=== PATIENT | female | born 1965 | race Caucasian/White ===

== ENCOUNTER 2019-10-30 12:28 | Outpatient (CLI) | payer MEDICARE, MEDICAID, SELFPAY ==
--- NOTE | ~2019-10-30 | US_ITS ---
EXAMINATION: US soft tissue head and neck DATE: 10/30/2019 13:20 INDICATION: Localized enlarged lymph nodes at the lateral left neck TECHNIQUE: Multiple grayscale and Doppler ultrasound images of the of concern at the left neck were o btained. COMPARISON: None FINDINGS: There are several normal-appearing and normal sized lymph nodes measuring up to 4 mm maximal short ax is diameter along the left jugular chain. No pathologically enlarged cervical lymphadenopathy. The vi sualized portions of the left thyroid gland are unremarkable. The visualized portions of the left com mon carotid artery and internal jugular vein appear normal. No abnormal masses or fluid collections i dentified. IMPRESSION: 1. Normal study. No pathologically enlarged lymph nodes or other abnormal masses identified at the re gion of concern at the left neck. Reviewed, dictated and finalized at location A. ET ASSEMBLER IMPRESSION: 1. Normal study. No pathologically enlarged lymph nodes or other abnormal juan luis s identified at the region of concern at the left neck.
== END 2019-10-30 12:29 | disposition home or self-care (01) ==
PROVIDERS: PCP Internal Medicine; Visit Provider Internal Medicine
DX: R59.0 Localized enlarged lymph nodes (principal)
CPT/HCPCS: 76536

== ENCOUNTER 2019-11-10 10:00 | Outpatient (CLI) | payer MEDICARE, MEDICAID, SELFPAY ==
--- NOTE | ~2019-11-10 | DEXA_ITS ---
Bone Density Report Name: Sarai Martinez Age: 54 Sex: Female Ethnicity: White Date of : 1965 Indication: postmenopausal; height loss; asthma or emphysema; hysterectomy; Referring Provider: ROSA ALTAMIRANO Study: Bone densitometry was performed. Exam Date: November 10, 2019 Accession number: [id number] Bone Density: Region BMD T-score Z-score Classification AP Spine (L1-L4) 0.946 -0.9 0.2 Normal Femoral Neck (Left) 0.751 -0.9 0.2 Normal Total Hip (Left) 0.843 -0.8 -0.1 Normal Total Hip Bilateral Avg 0.815 -1.1 -0.4 Osteopenia Femoral Neck (Right) 0.702 -1.3 -0.2 Osteopenia Total Hip (Right) 0.785 -1.3 -0.6 Osteopenia World Health Organization criteria for BMD impression classify patients as: Normal (T-score at or above -1.0), Osteopenia (T-score between -1.0 and -2.5), or Osteoporosis (T-score at or below -2.5). 10-year Fracture Risk(1): Major Osteoporotic Fracture 6.4% Hip Fracture 0.7% Reported Risk Factors: [place] (), Neck BMD=0.702, BMI=27.9, smoking (1) FRAX(R) Version 3.08. Fracture probability calculated for an untreated patient. Fracture probability may be lower if the patient has received treatment. Previous Exams: Region Exam Age BMD T-score BMD Change BMD Change Date g/cm2 vs Baseline vs Previous AP Spine(L1-L4) 11/10/2019 54 0.946 -0.9 -0.093(-8.9%)* -0.037(-3.8%)* 09/21/2017 52 0.984 -0.6 -0.055(-5.3%)* -0.055(-5.3%)* 07/30/2014 49 1.039 -0.1 Total Hip(Left) 11/10/2019 54 0.843 -0.8 -0.091(-9.8%)* 0.023(2.7%) 09/21/2017 52 0.821 -1.0 -0.114(-12.2%) -0.114(-12.2%) 07/30/2014 49 0.935 -0.1 Total Hip(Right) 11/10/2019 54 0.785 -1.3 -0.129(-14.1%) -0.036(-4.4%)* 09/21/2017 52 0.821 -1.0 -0.093(-10.2%) -0.093(-10.2%) 07/30/2014 49 0.914 -0.2 *Denotes significance at 95% confidence level, LSC for AP Spine = 0.022 g/cm2, LSC for Total Hip = 0.027 g/cm2 Clinical Information Provided by Patient: Smokes Has used the following medications: Vitamin D Has the following medical conditions: Asthma or Emphysema, Hysterectomy Patient maximum height was 65 Menopause Age: 37 No regular weight bearing exercise Drinks caffeinated beverages Onset of menses at age 10 Number of children 2 Impression: The patient has low bone mass, based on the Right Total Hip T-score. The patient has an estimated ten-year risk of hip fracture of 0.7% and an estimated ten-year risk of major
== END 2019-11-10 10:01 | disposition home or self-care (01) ==
LOC: ANHIMG 10:04
PROVIDERS: PCP Internal Medicine; Visit Provider Internal Medicine
DX: M85.89 Other specified disorders of bone density and structure, multiple sites (principal)
CPT/HCPCS: 77080

== ENCOUNTER 2020-03-20 10:29 | Outpatient (CLI) | payer MEDICARE, MEDICAID, SELFPAY ==
--- NOTE | ~2020-03-20 | MM_ITS ---
EXAMINATION: MM screening [facility] BI w alma HISTORY: Screening mammogram TECHNIQUE: Craniocaudal and mediolateral oblique 3-D tomosynthesis images were obtained and synthetic 2-D images were generated. CAD analysis was submitted and interpreted. COMPARISON: 01/17/2019, 09/21/2017, 08/19/2016 BREAST PARENCHYMAL COMPOSITION: There are scattered areas of fibroglandular density. FINDINGS: Stable asymmetry is again noted in the posterior third of the right breast on the craniocau concha view. There is no evidence of suspicious mass, calcification, or architectural distortion to sugg est malignancy in either breast. There has been no suspicious interval change. IMPRESSION: 1. No mammographic evidence of malignancy. 2. Recommend routine screening mammography in one year. BI-RADS Category 2: Benign finding(s). Reviewed, dictated and finalized at location A.
== END 2020-03-20 10:30 | disposition home or self-care (01) ==
LOC: ANHIMG 10:31
PROVIDERS: PCP Internal Medicine; Visit Provider Internal Medicine
DX: Z12.31 Encounter for screening mammogram for malignant neoplasm of breast (principal)
CPT/HCPCS: 77063; 77067

== ENCOUNTER 2020-05-09 13:59 | Outpatient (CLI) | payer MEDICARE, MEDICAID, SELFPAY ==
--- NOTE | ~2020-05-09 | CT_ITS ---
EXAMINATION:CT lung screening DATE: 05/09/2020 14:19 INDICATION: Personal history of tobacco dependence. Current smoker with 45 pack year history. TECHNIQUE: Computed tomography (CT) of the chest was performed without intravenous contrast. Automate d exposure control and iterative reconstruction technique were employed. The dose-length product (DLP ) was 94.75 mGy-cm. COMPARISON: Chest CT 03/05/2019 FINDINGS: There is moderate emphysema. There is widespread septal thickening in the lungs associated with mild groundglass opacities, consistent with chronic interstitial lung disease in a pattern of us ual interstitial pneumonia (UIP) versus nonspecific interstitial pneumonia (NSIP). No bronchiectasis. There is a 6 mm nodule in right middle lobe without change. A calcified right lung nodule and calcif ied right hilar lymph nodes are consistent with old granulomatous disease. There is a 5 mm nodule lef t lower lobe without change. No pleural effusion. The heart size is normal. No pericardial effusion. There are coronary artery calcifications. There is chronic mild mediastinal lymphadenopathy, likely r eactive. Calcifications in the spleen are consistent with old granulomatous disease. There is a 3 mm stone in right kidney. There is moderate thoracic spondylosis. There is mild chronic anterior wedging of T7 vertebral body. IMPRESSION: 1. Lung-RADS category 2: Benign appearance or behavior. Continue annual screening with noncontrast lo w-dose chest CT in 12 months. Reviewed, dictated and finalized at location A. IMPRESSION: 1. Lung-RADS category 2: Benign appearance or behavior. Continue annual screeni ng with noncontrast low-dose chest CT in 12 months.
== END 2020-05-09 14:00 | disposition home or self-care (01) ==
LOC: ANHIMG 14:05
PROVIDERS: PCP Internal Medicine; Visit Provider Nurse Practitioner Family
DX: Z12.2 Encounter for screening for malignant neoplasm of respiratory organs (principal); Z87.891 Personal history of nicotine dependence
CPT/HCPCS: G0297

== ENCOUNTER 2020-07-11 13:11 | Outpatient (CLI) | payer MEDICARE, MEDICAID, SELFPAY ==
--- NOTE | ~2020-07-11 | XR_ITS ---
EXAMINATION: [id number] INDICATION: Left rib pain, tobacco use TECHNIQUE: A frontal view of the chest and 3 views of the left ribs were obtained. COMPARISON: CT, 05/09/2020 FINDINGS: There are widespread reticular opacities with a peripheral predominance, consistent with ch ronic interstitial lung disease, better evaluated on recent chest CT. The lungs are free of acute opa cities. There is no pleural effusion or pneumothorax. The cardiomediastinal silhouette is normal. No displaced rib fracture is identified. Punctate calcifications of the left upper quadrant are consiste nt with healed granulomatous disease of the spleen. Calcified pulmonary nodules and calcified right h ilar lymph nodes are consistent with old granulomatous disease. A biopsy marker is noted in the left breast. IMPRESSION: 1. No evidence of displaced rib fracture. 2. Chronic interstitial lung disease. Reviewed, dictated and finalized at location A. LE BUSINESS INTELLIGENCE DEVELOPER
== END 2020-07-11 13:12 | disposition home or self-care (01) ==
PROVIDERS: PCP Internal Medicine; Visit Provider Internal Medicine
DX: R07.89 Other chest pain (principal); Z87.891 Personal history of nicotine dependence; J44.9 Chronic obstructive pulmonary disease, unspecified; E11.9 Type 2 diabetes mellitus without complications; J84.9 Interstitial pulmonary disease, unspecified
CPT/HCPCS: 71101

== ENCOUNTER 2020-08-06 09:06 | Outpatient (CLI) | payer MEDICARE, MEDICAID, SELFPAY ==
--- NOTE | ~2020-08-06 | MR_ITS ---
EXAMINATION: MR thoracic spine wo con EXAM DATE: 08/06/2020 10:27 INDICATION: Radiculopathy of thoracic region. TECHNIQUE: Multi-sequential, multiplanar MR images of the thoracic spine were obtained without contra st. Sagittal T1, T2, T2 fat saturation, axial T2 weighted images reviewed. There is no prior study for comparison. FINDINGS: Mild mid thoracic disc disease and kyphosis. Mild mid and upper thoracic disc bulges and sm all protrusions. The central canal and neural foramen are widely patent. There are no suspicious ling ow signal abnormalities. The spinal cord signal intensity and intrinsic morphology is normal. No appr eciable scoliosis. Mild thoracic facet arthropathy. IMPRESSION: Mild thoracic spondylosis without stenosis Reviewed, dictated and finalized at location A. MOTIVE OBSERVER
== END 2020-08-06 09:07 | disposition home or self-care (01) ==
PROVIDERS: PCP Internal Medicine; Visit Provider Nurse Practitioner Adult Health
DX: M47.24 Other spondylosis with radiculopathy, thoracic region (principal)
CPT/HCPCS: 72146

== ENCOUNTER 2020-10-03 12:29 | Outpatient (CLI) | payer MEDICARE, MEDICAID, SELFPAY ==
--- NOTE | ~2020-10-03 | MR_ITS ---
EXAMINATION: MR lumbar spine wo con DATE: 10/03/2020 13:36 INDICATION: Lumbar radiculopathy TECHNIQUE: Magnetic resonance imaging (MRI) of the lumbar spine was performed without intravenous con trast. Sequences included sagittal T2-weighted FSE, sagittal T2-weighted FS FSE, sagittal T1-weighted FSE, and axial T2-weighted FSE. COMPARISON: 09/21/2017 FINDINGS: Alignment is normal. Vertebral body heights are normal. Normal marrow signal. Disc desiccation and m inimal disc height loss at L4-L5. The conus medullaris terminates at L1. There is normal signal in th e caudal spinal cord. Paravertebral soft tissues are unremarkable. The following disc levels are spec ifically discussed: T12-L1: The disc does not extend beyond the endplate margin. There is minimal bilateral facet joint o steoarthritis. There is no neural foraminal stenosis. There is no central canal stenosis. L1-L2: The disc does not extend beyond the endplate margin. There is mild bilateral facet joint osteo arthritis. There is no neural foraminal stenosis. There is no central canal stenosis. L2-L3: The disc does not extend beyond the endplate margin. There is mild bilateral facet joint osteo arthritis. There is no neural foraminal stenosis. There is no central canal stenosis. L3-L4: The disc does not extend beyond the endplate margin. There is mild bilateral facet joint osteo arthritis. There is mild bilateral neural foraminal stenosis. There is no central canal stenosis. L4-L5: Mild diffuse disc bulge. There is mild right and mild to moderate left facet joint osteoarthri tis. There is mild bilateral neural foraminal stenosis. There is no central canal stenosis. L5-S1: Annular fissure and small central disc protrusion. There is mild to moderate bilateral facet j oint osteoarthritis. There is no neural foraminal stenosis. There is mild central canal stenosis. IMPRESSION: 1. Negligible progression of mild lumbar spondylosis. Reviewed, dictated and finalized at location B. OLOGY SUPERVISOR
--- NOTE | ~2020-10-03 | MR_ITS ---
EXAMINATION: MR cervical spine wo con DATE: 10/03/2020 13:30 INDICATION: Cervical radiculopathy. TECHNIQUE: Magnetic resonance imaging (MRI) of the cervical spine was performed without intravenous c ontrast. Sequences included sagittal T2-weighted FSE, sagittal T2-weighted FS FSE, sagittal T1-weight ed FSE, axial MERGE, and axial T2-weighted FSE. COMPARISON: None FINDINGS: There is 3 degrees levocurvature of cervical spine. There is mild kyphosis of lower cervica l spine. Vertebral body heights are normal. There is mildly decreased disc height at C5-C6. The spina l cord signal intensity is normal. The following disc levels are specifically discussed: C2-C3: The disc does not extend beyond the endplate margin. There is no uncovertebral joint osteoarth ritis. There is severe right and moderate left facet joint osteoarthritis. There is mild right neural foraminal stenosis. There is no central canal stenosis. C3-C4: The disc does not extend beyond the endplate margin. There is no uncovertebral joint osteoarth ritis. There is moderate bilateral facet joint osteoarthritis. There is no neural foraminal stenosis. There is no central canal stenosis. C4-C5: There is a left central protrusion. There is no uncovertebral joint osteoarthritis. There is n o facet joint osteoarthritis. There is no neural foraminal stenosis. There is mild central canal sten osis. C5-C6: There is a large left central extrusion. There is severe bilateral uncovertebral joint osteoar thritis. There is mild bilateral facet joint osteoarthritis. There is mild bilateral neural foraminal stenosis. There is mild central canal stenosis with ventral indentation of the spinal cord. C6-C7: There is a left central protrusion. There is mild bilateral uncovertebral joint osteoarthritis . There is mild left facet joint osteoarthritis. There is mild right and moderate left neural foramin al stenosis. There is mild central canal stenosis. C7-T1: The disc does not extend beyond the endplate margin. There is no uncovertebral joint osteoarth ritis. There is mild bilateral facet joint osteoarthritis. There is no neural foraminal stenosis. The re is no central canal stenosis. IMPRESSION: 1. Moderate cervical spondylosis. Reviewed, dictated and finalized at location A. E FASTENER REPAIRER
== END 2020-10-03 12:30 | disposition home or self-care (01) ==
PROVIDERS: Family Provider Internal Medicine; PCP Internal Medicine; Visit Provider Nurse Practitioner Adult Health
DX: M54.12 Radiculopathy, cervical region (principal); M54.16 Radiculopathy, lumbar region; M47.812 Spondylosis without myelopathy or radiculopathy, cervical region; M47.816 Spondylosis without myelopathy or radiculopathy, lumbar region
CPT/HCPCS: 72141; 72148

== ENCOUNTER 2021-08-17 12:35 | Outpatient (CLI) | payer MEDICARE, MEDICAID, SELFPAY ==
--- NOTE | ~2021-08-17 | CT_ITS ---
EXAMINATION: CT lung screening DATE: 08/17/2021 12:53 INDICATION: Personal history of tobacco dependence TECHNIQUE: Computed tomography (CT) of the chest was performed without intravenous contrast. The dose -length product was 83.85 mGy-cm. Automated exposure control and iterative reconstruction technique w ere employed. COMPARISON: CT dated 05/09/2020 FINDINGS: Heart size is normal. There is mediastinal lymphadenopathy, for example precarinal lymph no de measures 1.4 cm. There is mild atherosclerosis. No evidence for aneurysm. Heart size normal. No si gnificant pleural or pericardial effusion. There are nonobstructing bilateral renal stones. There is emphysema. There is coarse chronic interstitial lung disease with interlobular septal thickening and honeycombing peripherally, consistent with interstitial fibrosis. No focal airspace consolidation. Th ere are scattered calcified granulomas of the lung parenchyma. There is a 6 mm pleural-based nodule i n the lingula. There is a 6 mm right middle lobe nodule. There are a few additional smaller nodules w hich are of scattered by superimposed interstitial pulmonary disease. No pneumothorax. No endobronchi al lesions. No thoracic spondylosis with accentuated kyphosis. No acute osseous abnormality. IMPRESSION: 1. Lung-RADS category 3: Probably benign. Further evaluation is recommended with noncontrast low-dose chest CT in 6 months. Reviewed, dictated and finalized at location A. SERVICE AIDE IMPRESSION: 1. Lung-RADS category 3: Probably benign. Further evaluation is recommended wit h noncontrast low-dose chest CT in 6 months.
== END 2021-08-17 12:36 | disposition home or self-care (01) ==
LOC: ANHIMG 12:38
PROVIDERS: PCP Internal Medicine; Visit Provider Nurse Practitioner Family
DX: Z12.2 Encounter for screening for malignant neoplasm of respiratory organs (principal); Z87.891 Personal history of nicotine dependence
CPT/HCPCS: 71271

== ENCOUNTER 2021-09-03 14:40 | Outpatient (CLI) | payer MEDICARE, MEDICAID, SELFPAY ==
--- NOTE | ~2021-09-03 | MM_ITS ---
EXAMINATION: MM screening [facility] BI w alma HISTORY: Screening TECHNIQUE: Craniocaudal and mediolateral oblique 3-D tomosynthesis images were obtained and synthetic 2-D images were generated. CAD analysis was submitted and interpreted. COMPARISON: Comparison to multiple prior studies sequentially, with oldest reviewed study dated 2014. BREAST PARENCHYMAL COMPOSITION: There are scattered areas of fibroglandular density. FINDINGS: There is no evidence of suspicious mass, calcification, or architectural distortion to sugg est malignancy in either breast. There has been no suspicious interval change. IMPRESSION: 1. No mammographic evidence of malignancy. 2. Recommend routine screening mammography in one year. BI-RADS Category 1: Negative Reviewed, dictated and finalized at location A. SWAIN MATE
== END 2021-09-03 14:41 | disposition home or self-care (01) ==
LOC: ANHIMG 14:42
PROVIDERS: PCP Internal Medicine; Visit Provider Nurse Practitioner
DX: Z12.31 Encounter for screening mammogram for malignant neoplasm of breast (principal)
CPT/HCPCS: 77063; 77067

== ENCOUNTER 2021-09-17 07:54 | Outpatient (CLI) | payer MEDICARE, MEDICAID, SELFPAY ==
--- NOTE | 2021-09-17 16:59 | WPDSIXMINUTE ---
Six Minute Walk Procedure Procedure Performed Pulmonary Stress Test (6 min walk) Six Minute Walk This is a 6 minute walk test. The test was performed and interpreted in accordance with the 2014 ERS/ATS task force guidelines. Findings: The patient's resting room air oxygen saturation measured by pulse oximetry was 96% and heart rate was 79 bpm. Patient ambulated for 229 meters and oxygen saturation remained 92 to 99%. Heart rate at the end of the study was 103 bpm. The patient did not qualify for supplemental oxygen at rest or with ambulation. There are no prior studies for comparison.
--- NOTE | 2021-09-17 17:00 | WPDPFTINT ---
PFT Procedure Performed PFT Procedure Performed Spirometry with Pre/Post Bronchodilator Plethysmography (Lung Vol) Diffusing Cap (DLCO) Flow Vol Loop PFT Interpretation This is a pulmonary function test with pre and post-bronchodilator spirometry, plethysmography and diffusing capacity. The test was performed and results interpreted in accordance with the 2019 and 2005 ATS/ERS Task Force guidelines respectively using the Global Lung Function Initiative-2012 reference equations. Patient demonstrated good effort and cooperation. Reproducibility criteria were met. The quality of the pre bronchodilator spirometry maneuver was Grade A and post bronchodilator spirometry maneuver was Grade A. of note the patient had difficulty with forceful expiration and inspiration on all the trials. Findings: Spirometry: There is decreased maximal expiratory airflow at all lung volumes with a concave expiratory flow tracing. The contour of the inspiratory flow tracing is diminished. The pre bronchodilator FVC is 2.43 L, 74% predicted. The pre bronchodilator FEV1 is 0.84 L, 32% predicted. The pre bronchodilator FEV 1: FVC ratio is 34%. The post bronchodilator FVC is 3.00 L, representing a 24% increase. The post bronchodilator FEV1 is 1.23 L, representing a 47% increase. The post bronchodilator FEV1: FVC ratio is 41%. Plethysmography: The total lung capacity is 4.67 L, 92% predicted. The functional residual capacity is 3.21 L, 112% predicted. The residual volume is 2.23 L, 115% predicted. Diffusion capacity: The absolute diffusion capacity is 5.9, 27% predicted. The diffusing capacity corrected for alveolar volume is 2.53, 56% predicted. In comparison to previous pulmonary function test on 10/02/2015 the post bronchodilator FVC is unchanged from 2.97 L to 3.00 L. The post bronchodilator FEV1 is unchanged from 1.11 L to 1.23 L. The total lung capacity is increased from 3.95 L to 4.67 L. The functional residual capacity is increased from 2.10 L to 3.21 L. The residual volume is increased from 1.32 L to 2.23 L. the absolute diffusion capacity is decreased from 12.6 to 5.9. The diffusing capacity corrected for alveolar volume is decreased from 3.26 to 2.53. Impression: There is a very severe obstructive abnormality with significant improvement after inhaling a single dose of albuterol. The lung volumes are normal. The absolute diffusing capacity is severrely decreased and remains moderately decreased when corrected for alveolar volume. In comparison to prior pulmonary function tests on 10/02/2015 there has been a greater than anticipated time dependent increase in total lung capacity, functional residual capacity and residual volume all of which are normal now. There has been a greater than anticipated time dependent decrease in absolute diffusion capacity and diffusing capacity corrected for alveolar volume with no change in the post bronchodilator FVC and FEV1. Clinical correlation is recommended.
== END 2021-09-17 07:55 | disposition home or self-care (01) ==
LOC: ANHPFT 07:56
PROVIDERS: PCP Internal Medicine; Visit Provider Nurse Practitioner Family
DX: J84.10 Pulmonary fibrosis, unspecified (principal); J44.9 Chronic obstructive pulmonary disease, unspecified; R06.02 Shortness of breath; R94.2 Abnormal results of pulmonary function studies
CPT/HCPCS: 94060; 94618; 94726; 94729

== ENCOUNTER 2022-02-15 10:48 | Outpatient (CLI) | payer MEDICARE, MEDICAID, SELFPAY ==
--- NOTE | ~2022-02-15 | CT_ITS ---
EXAMINATION:CT chest high resolution wo co DATE: 02/15/2022 11:03 INDICATION: Lung nodule. Interstitial lung disease. TECHNIQUE: Computed tomography (CT) of the chest was performed without intravenous contrast. Automate d exposure control and iterative reconstruction technique were employed. The dose-length product (DLP ) was 188.53 mGy-cm. COMPARISON: Chest CT 08/17/2021 FINDINGS: There is moderate emphysema. There is widespread septal thickening in the lungs with a shannon pheral predominance associated with groundglass opacities. Peripheral cystic spaces in the lungs in a ll lobes may be honeycombing and/or emphysema. A calcified right lung nodule and calcified right lea r lymph nodes are consistent with old granulomatous disease. There is a 6 mm nodule in right middle l obe without change. There is a stable 4 mm nodule in lingula. There is a stable 6 mm nodule in lingul a. No pleural effusion. There is chronic mild mediastinal lymphadenopathy, likely reactive. The heart size is normal. There are coronary artery calcifications. No pericardial effusion. Calcifications in the spleen are consistent with old granulomatous disease. There is moderate thoracic spondylosis. Th ere is mild chronic anterior wedging of multiple midthoracic vertebral bodies. IMPRESSION: 1. Lung-RADS category 2: Benign appearance or behavior. Continue annual screening with noncontrast lo w-dose chest CT in 12 months. 2. Stable diffuse lung disease, likely a combination of moderate emphysema and chronic interstitial l carter disease in a pattern of usual interstitial pneumonia (UIP). Reviewed, dictated and finalized at location B. IMPRESSION: 1. Lung-RADS category 2: Benign appearance or behavior. Continue annual screeni ng with noncontrast low-dose chest CT in 12 months. 2. Stable diffuse lung disease, likely a combination of moderate emphysema and chronic interstitial lung disease in a pattern of usual interstitial pneumonia (UIP).
== END 2022-02-15 10:49 | disposition home or self-care (01) ==
PROVIDERS: PCP Internal Medicine; Visit Provider Nurse Practitioner Family
DX: J84.9 Interstitial pulmonary disease, unspecified (principal); J84.10 Pulmonary fibrosis, unspecified; R91.8 Other nonspecific abnormal finding of lung field
CPT/HCPCS: 71250

== ENCOUNTER 2022-10-23 10:36 | Outpatient (CLI) | payer MEDICARE, MEDICAID, SELFPAY ==
--- NOTE | ~2022-10-23 | MM_ITS ---
EXAMINATION: MM screening [facility] BI w alma HISTORY: Screening mammogram TECHNIQUE: Craniocaudal and mediolateral oblique 3-D tomosynthesis images were obtained and synthetic 2-D images were generated. CAD analysis was submitted and interpreted. COMPARISON: 09/03/2021, 03/20/2020, 01/17/2019 bilateral screening mammogram examinations BREAST PARENCHYMAL COMPOSITION: There are scattered areas of fibroglandular density. FINDINGS: There is a biopsy marker on the left. History of prior benign left breast biopsy. Subtle microcalcifications are noted in the upper outer quadrant of each breast. Bilateral diagnostic mammography with magnification views is recommended, with ultrasound if required. Otherwise there is no evidence of suspicious mass, calcification, or architectural distortion to sugg est malignancy in either breast. There has been no other suspicious interval change. IMPRESSION: 1. Subtle bilateral microcalcifications, upper outer quadrants 2. Bilateral diagnostic mammography with magnification views is recommended with ultrasound if requir ed BI-RADS Category 0: Incomplete: Needs additional imaging evaluation. Reviewed, dictated and finalized at location A. LSIOR MACHINE OPERATOR IMPRESSION: 1. Subtle bilateral microcalcifications, upper outer quadrants 2. Bilateral diagnostic mammography with magnification views is recommended wit h ultrasound if required BI-RADS Category 0: Incomplete: Needs additional imaging evaluation.
== END 2022-10-23 10:37 | disposition home or self-care (01) ==
LOC: ANHIMG 10:38
PROVIDERS: PCP Internal Medicine; Visit Provider Internal Medicine
DX: Z12.31 Encounter for screening mammogram for malignant neoplasm of breast (principal); R92.8 Other abnormal and inconclusive findings on diagnostic imaging of breast
CPT/HCPCS: 77063; 77067

== ENCOUNTER 2022-11-29 11:13 | Outpatient (CLI) | payer MEDICARE, MEDICAID, SELFPAY ==
--- NOTE | ~2022-11-29 | MM_ITS ---
EXAMINATION: MM diagnostic [facility] BI w alma HISTORY: Follow-up microcalcifications TECHNIQUE: Additional 3-D tomosynthesis images of the breasts were performed and synthetic 2-D images were generated. CAD analysis was submitted and interpreted. COMPARISON: Comparison to multiple prior studies sequentially, with oldest reviewed study dated 08/05. BREAST PARENCHYMAL COMPOSITION: Breast composed of scattered areas of fibroglandular density FINDINGS: There are punctate monomorphic bilateral breast calcifications involving the upper outer qu adrant of both breasts, most likely benign. IMPRESSION: 1. Probable benign bilateral breast calcifications. 2. Recommend 6 month follow-up diagnostic bilateral mammogram BI-RADS category 3, probably benign findings. Reviewed, dictated and finalized at location A.
== END 2022-11-29 11:14 | disposition home or self-care (01) ==
LOC: ANHIMG 11:14
PROVIDERS: PCP Internal Medicine; Visit Provider Nurse Practitioner Family
DX: R92.8 Other abnormal and inconclusive findings on diagnostic imaging of breast (principal)
CPT/HCPCS: 77062; 77066; G0279

== ENCOUNTER 2023-02-16 15:48 | Outpatient (CLI) | payer MEDICARE, MEDICAID, SELFPAY ==
--- NOTE | ~2023-02-16 | CT_ITS ---
EXAMINATION:CT diagnostic chest wo con DATE: 02/16/2023 22:00 INDICATION: Other nonspecific abnormal finding of lung field. Interstitial lung disease. TECHNIQUE: Computed tomography (CT) of the chest was performed without intravenous contrast. Automate d exposure control and iterative reconstruction technique were employed. The dose-length product (DLP ) was 60.46 mGy-cm. COMPARISON: Chest CT 02/15/2022 FINDINGS: Emphysema is noted. There is widespread septal thickening in the lungs with a peripheral pr edominance. There is mild bronchiectasis in lingula. There are areas of honeycombing in all lobes. A calcified right lung nodule and calcified right hilar lymph nodes are consistent with old granulomato us disease. There is a 6 mm nodule right middle lobe without change, likely benign. No pleural effusi on. There is chronic mild noncalcified mediastinal lymphadenopathy, likely reactive. The heart size i s normal. No pericardial effusion. Calcifications in the spleen are consistent with old granulomatous disease. There is a 4 mm stone in right kidney. There is moderate thoracic spondylosis. There is mil d chronic anterior wedging of T6 and T7 vertebral bodies. IMPRESSION: 1. Stable diffuse lung disease, likely a combination of emphysema and chronic interstitial lung disea se in a pattern of usual interstitial pneumonia (UIP). Reviewed, dictated and finalized at location A. IMPRESSION: 1. Stable diffuse lung disease, likely a combination of emphysema and chronic i nterstitial lung disease in a pattern of usual interstitial pneumonia (UIP).
== END 2023-02-16 15:49 | disposition home or self-care (01) ==
LOC: ANHIMG 15:49
PROVIDERS: PCP Family Medicine; Visit Provider Nurse Practitioner Family
DX: J84.9 Interstitial pulmonary disease, unspecified (principal); R91.8 Other nonspecific abnormal finding of lung field
CPT/HCPCS: 71250

== ENCOUNTER 2023-02-16 15:52 | Outpatient (CLI) | payer MEDICARE, MEDICAID, SELFPAY ==
--- NOTE | 2023-02-17 09:47 | PCRCNOTE ---
Paper documentation exists on this patient due to [employer] downtime on 02/16/23 from [id number] to [id number]
--- NOTE | 2023-02-17 12:33 | WPDPFTINT ---
PFT Procedure Performed PFT Procedure Performed Spirometry with Pre/Post Bronchodilator Plethysmography (Lung Vol) Diffusing Cap (DLCO) Flow Vol Loop PFT Interpretation Lung volumes were measured with the body plethysmography method. The elevated RV and FRC could be due to air trapping. Spirometry showed diminished expiratory flow rates and a borderline low FEV1 to FVC ratio 66% possibly indicating obstructive airway disease. Following administration of bronchodilator there was no significant increase in the expiratory flow rates. Lung diffusion capacity is severely reduced at 29% predicted. Of note the patient's performance was suboptimal due to continuous coughing and shortness of breath. Clinical correlation advised. Impression: Suboptimal patient effort. Possible obstructive airway disease with air trapping and no response to bronchodilators on this testing. Severely reduced lung diffusion capacity.
--- NOTE | 2023-02-17 12:37 | WPDSIXMINUTE ---
Six Minute Walk Procedure Procedure Performed Pulmonary Stress Test (6 min walk) Six Minute Walk Six Minute Walk: This 6 minute walk test was carried out with the patient breathing ambient air. The pre walk baseline oxyhemoglobin saturation was 94%. The patient walked over 243 m with no stops during testing. During the walk the oxyhemoglobin saturation remained in the range of 90% to 95%. Impression: No evidence of oxyhemoglobin desaturation on this testing.
== END 2023-02-16 15:53 | disposition home or self-care (01) ==
LOC: ANHPFT 15:53
PROVIDERS: PCP Family Medicine; Visit Provider Nurse Practitioner Family
DX: J44.9 Chronic obstructive pulmonary disease, unspecified (principal); J84.9 Interstitial pulmonary disease, unspecified; R06.09 Other forms of dyspnea
CPT/HCPCS: 71250; 94060; 94618; 94726; 94729

== ENCOUNTER 2023-05-11 10:38 | Outpatient (CLI) | payer MEDICARE, MEDICAID, SELFPAY ==
--- NOTE | 2023-05-11 10:55 | ECG_ITS ---
Measurements Intervals [place] Rate: 75 P: -14 VT: 96 QRS: 58 QRSD: 83 T: 48 QT: 394 QTc: 441 Interpretive Statements SINUS RHYTHM WITH SHORT VT INTERVAL NONSPECIFIC T-WAVE ABNORMALITY- ANT/INF LEADS BORDERLINE ECG NO PREVIOUS ECG AVAILABLE FOR COMPARISON Electronically Signed On 05-11-2023 11:17:13 CDT by Eleazar Abernathy D.O.
[2023-05-11 11:40] LABS: Anion Gap 6 mmol/L (8-16); Blood Urea Nitrogen 18 mg/dL (7-17); Calcium 9.4 mg/dL (8.4-10.2); Carbon Dioxide 29 mmol/L (22-30); Chloride 102 mmol/L (98-107); Estimated Glomerular Filt Rate > 60; Glucose 127 mg/dL (65-110); Potassium 4.1 mmol/L (3.4-5.0); Sodium 137 mmol/L (137-145)
== END 2023-05-11 10:39 | disposition home or self-care (01) ==
PROVIDERS: Anesthesiology; PCP Family Medicine; Visit Provider Urology
DX: Z01.818 Encounter for other preprocedural examination (principal); I49.8 Other specified cardiac arrhythmias; E11.42 Type 2 diabetes mellitus with diabetic polyneuropathy
CPT/HCPCS: 36415; 80048; 93005

== ENCOUNTER 2023-05-13 01:22 | Day surgery (SDC) | payer MEDICARE, MEDICAID, SELFPAY ==
[2023-05-10 17:49] VITALS: BMI 22.0
--- NOTE | 2023-05-10 17:56 | PC.NURSE ---
Report to the Outpatient Waiting Room, entrance under the green pavilion located off [facility], at time __0745__ on date _05/13/23__. Planned Procedure Time: _0945_. Time changes happen often and if your time is changed the preop area will call you the afternoon before. - You and your visitor will be asked to self-screen and do not enter if you have any COVID symptoms. - A mask is optional within the hospital at this time. Patients may have clear liquids (water, carbonated beverages, clear teas, apple juice) until 3 hours prior to surgery with a maximum of 20 ounces. - No food from midnight until time of surgery - Infants may have breast milk until 4 hours before surgery, formula 6 hours prior to surgery. - Children will be allowed to drink immediately following surgery. If applicable, please bring a bottle or sippy cup to assist with drinking. Juice, water, soda, and popsicles are readily available. For infants on formula, please bring formula the day of surgery. Pacifiers are allowed. Take the following medications with a SIP of water the morning of surgery: _BUPROPION, BUSPIRONE DO NOT STOP ANY OF YOUR OTHER PRESCRIPTION MEDICATIONS PRIOR TO SURGERY ?EXCEPT THE FOLLOWING Medications to discontinue per physician PAIN MEDICATION AND MUSCLE RELAXERS STOPPED BY PT PER SURGEON INSTRUCTION, PT ALSO STOPPED VITAMINS 05/06/23 Date to take last dose 05/06/23 Please no make-up, nail pakistani, hairspray, perfume, deodorant, or body powder the day of surgery. No jewelry (including any body piercings) or valuables the day of surgery, leave them at home. Please take a shower or bath the night before, or the morning of, surgery with an antibacterial soap. Wear comfortable, loose fitting clothing. Children are encouraged to wear pajamas. - Jewelry must be removed prior to entering the operating room. Rings and piercings that are not removed may be cut off. - The hospital will not accept responsibility for valuables. - Please leave all valuables, including medications, at home the day of surgery. If you are going home after surgery, a licensed guard driver must drive you home. - NO public transportation without another adult if you receive anesthesia. - We recommend that an adult stay with you for 24 hours following discharge. - We also recommend that you do not drive, make important decision, drink alcoholic beverages, or take any drugs that were not prescribed by your health care provider for at least 24 hours after your discharge time. For Pediatric surgeries, we recommend two adults accompany the child home. Follow any additional instructions given to you from your surgeon. If you or anyone in your household have experienced Covid symptoms in the past week, please notify your surgeon or the nurse liaison at the phone number below for possible testing. Telephone instructions given to _PATIENT__and asked if any additional questions and then verbalized understanding. Patient advised to call surgeon office or pre surgery nurse liaison [phone] if any additional questions.
--- NOTE | 2023-05-11 21:58 | PM.IMHP ---
H&P: HPI History of Present Illness Date/Time: 05/11/23 21:58 Chief Complaint: mixed incontinence Narrative: she has mixed incontinence. She is on a beta 3 agonist for overactive bladder. She presents today for surgical correction of stress incontinence Review of Systems Review of Systems: All systems reviewed & are unremarkable except as noted in HPI and below PMFSH Past Medical History Medical History (Updated 05/11/23 @ 21:59 by Oli Kyle MD) Carpal tunnel syndrome COPD (chronic obstructive pulmonary disease) Degenerative joint disease Fibromyalgia Rheumatoid arthritis Skin cancer Surgical History Surgical History H/O: hysterectomy Family History Family History Mother Patient's mother is in good health Family history of psoriasis Family history of chronic obstructive pulmonary disease Father Patient's father is in good health Family history of heart disease in male family member before age 55 Sibling Patient's brother is in good health Family history of type 2 diabetes mellitus Diabetes mellitus Other Family history of blood dyscrasia Social History Social History Smoking packs per day: 0.5 Smoking cigarettes per day: 10.0 Years smoked: 49 Smoking pack-years: 24.50 Smoking status: Current every day smoker Tobacco type: cigarettes Second hand tobacco smoke exposure: Yes Additional smoking assessment comments: started smoking at age 9 Alcohol intake: former Substance use: never Substance use type: does not use Lack of Transportation: No Lack of Food: Never True Current Housing: I Have Housing Concerned About Future Housing: No Difficulty Paying Gas/Electric Bills: No Difficulty Paying for Meds: No Currently Unemployed: No Education: Associate Degree Difficulty w/ Childcare or Family Care: No Living arrangements: with family Meds Home Medications and Allergies Home Medications Medication Instructions Recorded Confirmed Type albuterol sulfate 2.5 mg/3 mL 2.5 mg inhalation Q4H PRN 06/29/19 05/10/23 History (0.083 %) solution for nebulization SHORTNESS OF BREATH bupropion HCl 150 mg 24 hr tablet, 150 mg PO DAILY 02/04/22 05/10/23 History extended release buspirone 10 mg tablet 10 mg PO DAILY 02/04/22 05/10/23 History ipratropium 20 mcg-albuterol 100 See Rx Instructions .Route 06/03/22 05/10/23 Rx mcg/actuation mist for inhalation .COMPLEX #12 grams (Combivent Respimat) inhalational spacing device #1 ea 07/26/22 05/10/23 Rx cholecalciferol (vitamin D3) 100 100 mcg PO DAILY #30 tabs 08/12/22 05/10/23 Rx mcg (4,000 unit) tablet metformin 1,000 mg tablet 1,000 mg PO BID #180 tabs 12/27/22 05/10/23 Rx mirabegron 25 mg tablet,extended 25 mg PO DAILY #90 tabs 01/16/23 05/10/23 Rx release 24 hr (Myrbetriq) atorvastatin 20 mg tablet See Rx Instructions .Route 01/20/23 05/10/23 Rx .COMPLEX #100 tabs empagliflozin 10 mg tablet 10 mg PO QAM #100 tabs 01/20/23 05/10/23 Rx (Jardiance) acetaminophen 300 mg-codeine 30 mg 1 tablet PO BID PRN pain #60 tabs 04/14/23 05/10/23 Rx tablet carisoprodol 350 mg tablet 350 mg PO TID #90 tabs 04/14/23 05/10/23 Rx Allergies Allergy/AdvReac Type Severity Reaction Status Date / Time aspirin Allergy Severe stomach Verified 05/10/23 17:43 pain ampicillin Allergy Intermediate Vomiting Verified 05/10/23 17:43 sumatriptan Allergy Intermediate Chest Pain Verified 05/10/23 17:43 trazodone Allergy Intermediate Dizziness Verified 05/10/23 17:43 Exam Narrative: no acute distress normal breathing alert and oriented x3 urethral hypermobility Assessment and Plan Assessment and plan (1) MAXIMINO (stress urinary incontinence, female): Code(s): N39.3 - Stress incontinence (female) (male) Stat
--- NOTE | 2023-05-13 07:17 | WPDANESEPPF ---
Anes - Initial Pre Proc Eval Procedure: Operation Date: 05/13/23 09:00 Proposed Procedures p Urethral Sling - Oli Kyle MD Date/Time: 05/13/23 07:17 Surgeon: Oli Kyle MD Pre Op Diagnosis: stress incont Patient Data Age: 58 Gender: F Height: 1.65 m Weight: 60 kg Allergies Allergy/AdvReac Type Severity Reaction Status Date / Time aspirin Allergy Severe stomach Verified 05/13/23 07:54 pain ampicillin Allergy Intermediate Vomiting Verified 05/13/23 07:54 sumatriptan Allergy Intermediate Chest Pain Verified 05/13/23 07:54 trazodone Allergy Intermediate Dizziness Verified 05/13/23 07:54 Home Medications Medication Instructions Recorded Confirmed Type albuterol sulfate 2.5 mg/3 mL 2.5 mg inhalation Q4H PRN 06/29/19 05/13/23 History (0.083 %) solution for nebulization SHORTNESS OF BREATH bupropion HCl 150 mg 24 hr tablet, 150 mg PO DAILY 02/04/22 05/13/23 History extended release buspirone 10 mg tablet 10 mg PO DAILY 02/04/22 05/13/23 History ipratropium 20 mcg-albuterol 100 See Rx Instructions .Route 06/03/22 05/13/23 Rx mcg/actuation mist for inhalation .COMPLEX #12 grams (Combivent Respimat) inhalational spacing device #1 ea 07/26/22 05/13/23 Rx cholecalciferol (vitamin D3) 100 100 mcg PO DAILY #30 tabs 08/12/22 05/13/23 Rx mcg (4,000 unit) tablet metformin 1,000 mg tablet 1,000 mg PO BID #180 tabs 12/27/22 05/13/23 Rx mirabegron 25 mg tablet,extended 25 mg PO DAILY #90 tabs 01/16/23 05/13/23 Rx release 24 hr (Myrbetriq) atorvastatin 20 mg tablet See Rx Instructions .Route 01/20/23 05/13/23 Rx .COMPLEX #100 tabs empagliflozin 10 mg tablet 10 mg PO QAM #100 tabs 01/20/23 05/13/23 Rx (Jardiance) acetaminophen 300 mg-codeine 30 mg 1 tablet PO BID PRN pain #60 tabs 04/14/23 05/13/23 Rx tablet carisoprodol 350 mg tablet 350 mg PO TID #90 tabs 04/14/23 05/13/23 Rx Patient hx anesthesia problems: none Family hx anesthesia problems: none Results Review: All pre-operative results and documents have been reviewed as part of the pre-operative evaluation. [facility] Past Medical History Medical History (Updated 05/13/23 @ 07:18 by Chris Ding DO) Anxiety Carpal tunnel syndrome COPD (chronic obstructive pulmonary disease) Degenerative joint disease Diabetes type 2, controlled Fibromyalgia Mixed hyperlipidemia Rheumatoid arthritis Skin cancer Surgical History Surgical History H/O: hysterectomy Family History Family History Mother Patient's mother is in good health Family history of psoriasis Family history of chronic obstructive pulmonary disease Father Patient's father is in good health Family history of heart disease in male family member before age 55 Sibling Patient's brother is in good health Family history of type 2 diabetes mellitus Diabetes mellitus Other Family history of blood dyscrasia Social History Social History Smoking packs per day: 0.5 Smoking cigarettes per day: 10.0 Years smoked: 49 Smoking pack-years: 24.50 Smoking status: Current every day smoker Tobacco type: cigarettes Second hand tobacco smoke exposure: Yes Additional smoking assessment comments: started smoking at age 9 Alcohol intake: former Substance use: never Substance use type: does not use Lack of Transportation: No Lack of Food: Never True Current Housing: I Have Housing Concerned About Future Housing: No Difficulty Paying Gas/Electric Bills: No Difficulty Paying for Meds: No Currently Unemployed: No Education: Associate Degree Difficulty w/ Childcare or Family Care: No Living arrangements: with family Dorothys - Naif Final PreProcedure Day of Procedure 05/13/23 07:17 Patient weight: normal Heart: regular rate and rhythm Lungs
--- NOTE | 2023-05-13 07:18 | WPDHPUPDATE1 ---
History and Physical Update Update Date/Time: 05/13/23 07:18 History and Physical has been reviewed, including an updated exam of the patient. There are NO changes in the patient's condition. Risks, benefits, and alternatives have been discussed and questions answered. Patient agrees to proceed with procedure.
[2023-05-13] MEDS: LACTATED RINGERS 1,000 ML 30 ML IV CONT (07:45)
[2023-05-13 08:00] VITALS: BP 117/55; PULSE 74; RESP 18; TEMP 36.4; O2SAT 95
[2023-05-13 08:01] LABS: Glucose Point of Care 117 mg/dl (65-105)
[2023-05-13] MEDS: ceFAZolin 2 GM/D5W 50 ML 2 GM/50 ML BAG IVPB (08:57)
[2023-05-13] MEDS: BUPIVACAINE/EPINEPHRINE 0.25% 10 ML VIAL INFILTRATE (09:14)
[2023-05-13 09:32] VITALS: BP 99/57; PULSE 91; RESP 16; O2SAT 91
[2023-05-13 10:00] VITALS: BP 99/57; PULSE 77; RESP 20
[2023-05-13 10:15] VITALS: BP 107/60; PULSE 72; RESP 20
--- NOTE | 2023-05-16 10:43 | W.PM.PROC2 ---
Procedure Note - Detailed Date of Procedure 05/13/23 Pre-op Diagnosis stress incont Post-op Diagnosis Same Procedure Performed mid urethral sling cystoscopy Surgeon Oli Kyle MD Anesthesia MAC and Local Indications This is a female with confirm stress urinary incontinence. She desires surgical correction. She understands the risks of bleeding, infection, injury to the urinary tract, vaginal mesh extrusion, urinary tract mesh erosion, obstructive voiding requiring a secondary procedure, hip and leg pain, dyspareunia, inability to improve overactive bladder symptoms. She agrees to proceed. Description of Procedure She was correctly identified. Informed consent obtained. She was brought the operating room. She was given appropriate anesthesia. She was given appropriate perioperative antibiotics. A time-out performed. I marked out the site of the inner thigh incisions. I anesthetized the skin and made those incisions. I anesthetized the anterior vaginal wall over the mid urethra. I made a 1 cm incision. I dissected out laterally taking great care not to injure the refilled vaginal wall. I passed the helical trocars. First on the left. Then on the right. I did this from the thigh incision towards the vaginal incision. The sling was connected to the trocars and brought out through the thigh incision. I tensioned the sling appropriately. I cut and the plastic sheaths. I then closed the incision with 2 0 Vicryl. On cystoscopy there is no tumors or surgical artifact. There was no surgical artifact in the urethra. I cut the excess sling material. Close incisions with glue. She was awakened and transferred to the PACU in stable condition. Implants Urethral sling Estimated Blood Loss -20.0 Drains No Packing No Pathology None sent Complications No immediate complications Condition Stable Disposition PACU
== END 2023-05-13 10:19 | disposition home or self-care (01) ==
PROVIDERS: PCP Family Medicine; Visit Provider Urology
PROC: (CPT 57288; principal; 2023-05-13 09:00)
DX: N39.3 Stress incontinence (female) (male) (principal); J44.9 Chronic obstructive pulmonary disease, unspecified; E11.9 Type 2 diabetes mellitus without complications; E78.2 Mixed hyperlipidemia; F41.9 Anxiety disorder, unspecified; M79.7 Fibromyalgia; M06.9 Rheumatoid arthritis, unspecified; Z79.51 Long term (current) use of inhaled steroids; Z79.84 Long term (current) use of oral hypoglycemic drugs; F17.210 Nicotine dependence, cigarettes, uncomplicated
CPT/HCPCS: 57288; 36415; 80048; 82948; 93005; C1771; J0690; J2250; J2704; J3010; J7120

== ENCOUNTER 2023-06-01 10:59 | Outpatient (CLI) | payer MEDICARE, MEDICAID, SELFPAY ==
--- NOTE | ~2023-06-01 | MM_ITS ---
EXAMINATION: MM diagnostic yinka BI w alma HISTORY: Calcifications TECHNIQUE: ML, MLO and CC 3-D tomosynthesis images of both breasts were performed and synthetic 2-D i mages were generated. Bilateral magnification views. CAD analysis was submitted and interpreted. COMPARISON: 11/29/2022 bilateral diagnostic mammogram 10/23/2019 bilateral screening mammogram BREAST PARENCHYMAL COMPOSITION: There are scattered areas of fibroglandular density. FINDINGS: There is a biopsy marker on the left; history of prior benign left breast biopsy. Occasional bilateral benign-appearing microcalcifications. No suspicious mass or architectural distortion, malignant calcification, skin thickening or retractio n or significant new or developing density is detected. IMPRESSION: 1. No mammographic evidence of malignancy 2. Routine annual mammographic screening is recommended BI-RADS Category 2: Benign finding(s). Reviewed, dictated and finalized at location A.
== END 2023-06-01 11:00 | disposition home or self-care (01) ==
LOC: ANHIMG 11:00
PROVIDERS: PCP Family Medicine; Visit Provider Nurse Practitioner Family
DX: R92.8 Other abnormal and inconclusive findings on diagnostic imaging of breast (principal)
CPT/HCPCS: 77062; 77066; G0279

== ENCOUNTER 2024-01-25 08:06 | Outpatient (CLI) | payer MEDICARE, MEDICAID, SELFPAY ==
--- NOTE | ~2024-01-25 | CT_ITS ---
EXAMINATION:CT chest high resolution wo al DATE: 01/25/2024 08:27 INDICATION: Interstitial pulmonary disease, unspecified. TECHNIQUE: Computed tomography (CT) of the chest was performed without intravenous contrast. Automate d exposure control and iterative reconstruction technique were employed. The dose-length product (DLP ) was 147.27 mGy-cm. COMPARISON: Chest CT 02/16/2023 FINDINGS: Emphysema is noted. There is widespread septal thickening in the lungs with a peripheral pr edominance. There is honeycombing involving all lobes. There is new bandlike atelectasis in anterior segment right upper lobe. There is a stable 6 mm nodule in right middle lobe, likely benign. A calcif ied right lung nodule and calcified right hilar lymph nodes are consistent with old granulomatous dis ease. There is stable mild mediastinal and bilateral hilar lymphadenopathy, likely reactive. Calcific ations in the spleen are consistent with old granulomatous disease. Aortic atherosclerosis is noted. There is a 4 mm stone right kidney. There is a 2 mm stone in left kidney. There is moderate thoracic spondylosis. There is mild chronic anterior wedging of multiple mid thoracic vertebral bodies. IMPRESSION: 1. Stable diffuse lung disease, likely a combination of emphysema and chronic interstitial lung disea se in a pattern of usual interstitial pneumonia (UIP). Reviewed, dictated and finalized at location A. IMPRESSION: 1. Stable diffuse lung disease, likely a combination of emphysema and chronic i nterstitial lung disease in a pattern of usual interstitial pneumonia (UIP).
--- NOTE | 2024-01-25 14:56 | WPDSIXMINUTE ---
Six Minute Walk Procedure Procedure Performed Pulmonary Stress Test (6 min walk) Six Minute Walk Six Minute Walk: This is a 6 minute walk test. The test was performed and interpreted in accordance with the 2014 ERS/ATS task force guidelines. Findings: The patient's resting room air oxygen saturation measured by pulse oximetry was 98% and heart rate was 66 bpm. Patient ambulated for 244 meters and oxygen saturation remained 94 to 97%. Heart rate at the end of the study was 81 bpm. The patient did not qualify for supplemental oxygen at rest or with ambulation. There are no prior studies for comparison.
--- NOTE | 2024-01-25 14:57 | WPDPFTINT ---
PFT Procedure Performed PFT Procedure Performed Spirometry with Pre/Post Bronchodilator Plethysmography (Lung Vol) Diffusing Cap (DLCO) Flow Vol Loop PFT Interpretation This is a pulmonary function test with pre and post-bronchodilator spirometry, plethysmography and diffusing capacity. The test was performed and results interpreted in accordance with the 2019 and 2005 ATS/ERS Task Force guidelines respectively using the Global Lung Function Initiative-2012 reference equations. Patient demonstrated good effort and cooperation. Reproducibility criteria were met. The quality of the pre bronchodilator spirometry maneuver was Grade A and post bronchodilator spirometry maneuver was Grade B. Of note, the patient had difficulty with all testing due to continuous cough and shortness of breath. Findings: Spirometry: The expiratory flow tracing demonstrates oscillations in 2 of the 3 pre bronchodilator maneuvers and 3 of 3 post bronchodilator maneuvers. The Expiratory flow tracing is flattened. The contour the inspiratory flow tracing is normal. The pre bronchodilator FVC is 2.29 L, 71% predicted. the pre bronchodilator FEV1 is 0.70 L, 28% predicted. The pre bronchodilator FEV1: FVC ratio is 31%. The post bronchodilator FVC is 1.98 L, representing a 14% decrease. The post bronchodilator FEV1 is 0.76 L, representing an 8% increase. The post bronchodilator FEV1: FVC ratio is 38%. Plethysmography: The total lung capacity is 6.01 L, 118% predicted. The functional residual capacity is 4.72 L, 165% predicted. The residual volume is 3.72 L, 188% predicted. The residual volume: Total lung capacity ratio is 62%. Diffusing capacity: The diffusing capacity unadjusted for hemoglobin and carboxyhemoglobin is 6.1, 28% predicted. The diffusing capacity adjusted for alveolar volume is 2.07, 46% predicted. In comparison to previous pulmonary function testing on 02/16/2023 In which the patient also had difficulty performing the test due to coughing and shortness of breath, the expiratory oscillation remain unchanged. The flattened expiratory flow tracing was present in the post bronchodilator efforts previously but not in the pre bronchodilator efforts previously. The post bronchodilator FVC is unchanged from 2.15 L to 1.98 L. The post bronchodilator FEV1 is decreased from 0.94 L to 0.76 L. The total lung capacity is unchanged from 6.53 L to 6.01 L. The functional residual capacity is unchanged from 4.83 L to 4.72 L. The residual volume is unchanged from 4.13 L to 3.72 L. The diffusing capacity unadjusted for hemoglobin and carboxyhemoglobin is unchanged from 6.2 to 6.1. The diffusing capacity adjusted for alveolar volume is unchanged from 2.14 to 2.07. Impression: The contour the expiratory flow tracing demonstrates a reproducible oscillating or sawtooth pattern. This is usually generated by air flow disturbances in the upper airway are from tremors of the respiratory muscles. This has been associated with sleep apnea, obesity, snorers without obstructive sleep apnea, upper airway injury, upper airway stenosis, tracheobronchomalacia, neuromuscular disorders with bulbar involvement, burn injury of the upper airway, diaphragmatic myoclonus, and herpes zoster of abdominal muscles. Clinical correlation is recommended. The contour of the inspiratory flow tracing is flattened. This is consistent with a variable extrathoracic obstruction. This has been described with vocal cord paralysis, structural or functional vocal fold abnormalities, extrathoracic tracheomalacia, polychondritis, mobile tumors, and laryngomalacia. Clinical correlation is recommended. There is a moderate obstructive abnormality. There is no significant improvement after inhaling a single dose of albuterol. The increase in residual volume to total lung volume ratio is consistent with hyperinflation from an obstructive abnormality. The diffusing capacity unadjusted for hemoglobin
== END 2024-01-25 08:07 | disposition home or self-care (01) ==
PROVIDERS: PCP Family Medicine; Visit Provider Nurse Practitioner Family
DX: J44.9 Chronic obstructive pulmonary disease, unspecified (principal)
CPT/HCPCS: 71250; 94060; 94618; 94726; 94729

== ENCOUNTER 2024-06-09 10:30 | Outpatient (CLI) | payer MEDICARE, MEDICAID, SELFPAY ==
--- NOTE | ~2024-06-09 | MM_ITS ---
EXAMINATION: MM screening yinka BI w alma HISTORY: Screening TECHNIQUE: Craniocaudal and mediolateral oblique 3-D tomosynthesis images were obtained and synthetic 2-D images were generated. CAD analysis was submitted and interpreted. COMPARISON: Comparison to multiple prior studies sequentially, with oldest reviewed study dated 01/17. BREAST PARENCHYMAL COMPOSITION: Dense: The breasts are heterogeneously dense, which may obscure small masses FINDINGS: There is no evidence of suspicious mass, calcification, or architectural distortion to sugg est malignancy in either breast. There has been no suspicious interval change. IMPRESSION: 1. No mammographic evidence of malignancy. 2. Recommend routine screening mammography in one year. BI-RADS Category 1: Negative Reviewed, dictated and finalized at location B.
== END 2024-06-09 10:31 | disposition home or self-care (01) ==
LOC: ANHIMG 10:33
PROVIDERS: PCP Family Medicine; Visit Provider Family Medicine
DX: Z12.31 Encounter for screening mammogram for malignant neoplasm of breast (principal)
CPT/HCPCS: 77063; 77067

== ENCOUNTER 2024-06-26 14:00 | Outpatient (CLI) | payer MEDICARE, MEDICAID, SELFPAY ==
--- NOTE | ~2024-06-26 | XR_ITS ---
XR shoulder RT min 2V 06/26/2024 14:42 Indication: Right shoulder pain Procedure: 4 views right shoulder Comparison: No prior studies for comparison. Findings: No fracture, subluxation or dislocation. There are coarse interstitial changes in the lung apices, likely chronic fibrosis. No soft tissue abnormality. Impression: 1: No acute bone or joint abnormality. Reviewed, dictated and finalized at location B. Impression: 1: No acute bone or joint abnormality.
== END 2024-06-26 14:01 | disposition home or self-care (01) ==
LOC: MICIMG 14:01
PROVIDERS: PCP Family Medicine; Visit Provider Family Medicine
DX: M25.511 Pain in right shoulder (principal)
CPT/HCPCS: 73030

== ENCOUNTER 2024-11-23 10:16 | Outpatient (CLI) | payer MEDICARE, MEDICAID, SELFPAY ==
--- NOTE | ~2024-11-23 | DEXA_ITS ---
Bone Density Report Name: YONATHAN POPE Age: 59 Sex: Female Ethnicity: White Date of : 1965 Indication: osteopenia; height loss; asthma or emphysema; hysterectomy; rheumatoid arthritis; Referring Provider: BAILEY TOVAR Study: Bone densitometry was performed. Exam Date: November 23, 2024 Accession number: [id number] Bone Density: Region BMD T-score Z-score Classification AP Spine(L1-L4) 0.853 -1.8 -0.3 Osteopenia Femoral Neck (Left) 0.656 -1.7 -0.4 Osteopenia Total Hip (Left) 0.752 -1.6 -0.6 Osteopenia Femoral Neck (Right) 0.591 -2.3 -1.0 Osteopenia Total Hip (Right) 0.731 -1.7 -0.7 Osteopenia Total Hip Mean 0.741 -1.7 -0.7 Osteopenia World Health Organization criteria for BMD impression classify patients as: Normal (T-score at or above -1.0), Osteopenia (T-score between -1.0 and -2.5), or Osteoporosis (T-score at or below -2.5). 10-year Fracture Risk(1): Major Osteoporotic Fracture 13% Hip Fracture 3.8% Reported Risk Factors: [place] (), Neck BMD=0.591, BMI=20.5, smoking, rheumatoid arthritis (1) FRAX(R) Version 3.08. Fracture probability calculated for an untreated patient. Fracture probability may be lower if the patient has received treatment. Previous Exams: Region Exam Age BMD T-score BMD Change BMD Change Date g/cm2 vs Baseline vs Previous AP Spine (L1-L4) 11/23/2024 59 0.853 -1.8 -0.130 (-13.3% -0.093 (-9.8%) 11/10/2019 54 0.946 -0.9 -0.037 (-3.8%) -0.037 (-3.8%) 09/21/2017 52 0.984 -0.6 Total Hip(Left) 11/23/2024 59 0.752 -1.6 -0.069 (-8.4%) -0.091 (-10.8% 11/10/2019 54 0.843 -0.8 0.023 (2.7%) 0.023 (2.7%) 09/21/2017 52 0.821 -1.0 Total Hip(Right) 11/23/2024 59 0.731 -1.7 -0.090 (-11.0% -0.054 (-6.9%) 11/10/2019 54 0.785 -1.3 -0.036 (-4.4%) -0.036 (-4.4%) 09/21/2017 52 0.821 -1.0 *Denotes significance at 95% confidence level, LSC for AP Spine = 0.022 g/cm2, LSC for Total Hip = 0.027 g/cm2 # Denotes dissimilar scan types or analysis methods Clinical Information Provided by Patient: Smokes Has rheumatoid arthritis Has used the following medications: Vitamin D Has the following medical conditions: Asthma or Emphysema, Hysterectomy Patient maximum height was 65 Menopause Age: 37 No regular weight bearing exercise Onset of menses at age 11 Number of children 2 Missed period for more than 6 months in a row Impression: The patient has low bone mass, based on the Right Femoral Neck T-score. The patient has an estimated ten-year risk of hip fracture of 3.8% and an estimated ten-year risk of major fracture of 13%, based on the WHO FRAX algorithm. The patient has risk factors, including: smoking. No significant bone loss was observed. Discussion: BONE DENSITY IS LOW AT ONE OR MORE SKELETAL SITES. THE PATIENT'S BMD AND CLINICAL RISK FACTORS CONTRIBUTE TO THIS PATIENT'S INCREASED RISK OF FRACTURE. This patient's lowest T-score is low at one or more skeletal sites. It meets the World Health Organization's (WHO) criteria for ?low bone mass? (T-score between -1.0 and -2.5). The patient's 10-year risk of hip fracture as calculated by FRAX exceeds the threshold where pharmacological therapy is recommended by the National Osteoporosis Foundation (NOF). However, all treatment decisions require clinical judgment and consideration of individual patient factors, including patient preferences, comorbidities, previous drug use, risk factors not captured in the FRAX model (e.g., frailty, falls, vitamin D deficiency, increased bone turnover, interval significant decline in bone density) and possible under or overestimation of fracture risk by FRAX. The patient should follow a healthful lifestyle (good nutrition with adequate calcium and vitamin D, and appropriate weight-bearing exercise). Follow-Up: Consider a repeat BMD and Vertebral Fracture Assessment (VFA) exam in 2 years or sooner if medically necessary, to reassess this patient's status. Reported by: IRINA on 11/23/2024 10:51:00 AM. Reviewed, dictated and finalized at location A. [facility]
--- OUTSIDE RECORDS SUMMARY | 2024-11-23 11:21 | XMS_ITS | CONTINUITY OF CARE DOCUMENT ---
Author Name mary gracejindolores Address Unknown Organization [facility] Address [address] [place] [address] Phone [phone] Care Team Providers Care Crawler Dragline Operator Name Role Phone Rainer EATON, Lizzy Unavailable JUAN EATON, VANESSA Unavailable COSME EATON, MAURA Unavailable [phone] INSURANCE PROVIDERS Payer name Policy type / Coverage type [place] red libertarian ID AETNA [facility] Other [id number]
== END 2024-11-23 10:17 | disposition home or self-care (01) ==
LOC: ANHIMG 10:16
PROVIDERS: PCP Family Medicine; Visit Provider Family Medicine
DX: M81.0 Age-related osteoporosis without current pathological fracture (principal); Z12.39 Encounter for other screening for malignant neoplasm of breast
CPT/HCPCS: 77080

== ENCOUNTER 2024-12-11 09:53 | Outpatient (CLI) | payer MEDICARE, MEDICAID, SELFPAY ==
--- NOTE | ~2024-12-11 | XR_ITS ---
Right foot Technique: AP and lateral views were obtained. Clinical History: Arthritis Findings: No acute fracture or dislocation is seen. Osseous alignment is anatomic. Joint spaces are p reserved without erosive or degenerative change. Soft tissues are unremarkable. Impression: Unremarkable right foot radiographs. Reviewed, dictated and finalized at location . Impression: Unremarkable right foot radiographs.
--- NOTE | ~2024-12-11 | XR_ITS ---
Left foot Technique: AP and lateral views were obtained. Clinical History: Arthritis Findings: No acute fracture or dislocation is seen. Osseous alignment is anatomic. Joint spaces are p reserved without erosive or degenerative change. Soft tissues are unremarkable. Impression: Unremarkable left foot radiographs. Reviewed, dictated and finalized at location . Impression: Unremarkable left foot radiographs.
--- OUTSIDE RECORDS SUMMARY | 2024-12-11 10:55 | XMS_ITS | CONTINUITY OF CARE DOCUMENT ---
Author Name mary gracejindolores Address Unknown Organization [facility] Address [address] [place] [address] Phone [phone] Care Team Providers Care Medical Transport Specialist Name Role Phone Rainer EATON, Lizzy Unavailable [phone] JUAN EATON, VANESSA Unavailable [phone] COSME EATON, MAURA Unavailable [phone] INSURANCE PROVIDERS Payer name Policy type / Coverage type [place] red constitution party ID AETNA [facility] Other [id number]
== END 2024-12-11 09:54 | disposition home or self-care (01) ==
PROVIDERS: PCP Family Medicine; Visit Provider Internal Medicine
DX: M06.9 Rheumatoid arthritis, unspecified (principal)
CPT/HCPCS: 73620

== ENCOUNTER 2025-01-30 08:03 | Outpatient (CLI) | payer MEDICARE, MEDICAID, SELFPAY ==
--- NOTE | ~2025-01-30 | CT_ITS ---
CT Scan of the Chest without Contrast: Clinical Indication: COPD Technique: Contiguous sections were acquired throughout the chest without intravenous contrast. Dose reduction technique was used on this scan by utilizing automated exposure control and iterative recon struction technique. The dose-length product (DLP) was 133.74 mGy-cm. COMPARISON: 01/25/2024 Findings: There is no evidence of any significant mediastinal, hilar or axillary lymphadenopathy. Calcified med iastinal and right hilar lymph nodes are present. Coronary artery calcifications are present. There is no evidence of pleural or pericardial effusion. There is moderate to advanced chronic inters titial disease with associated emphysematous change. Stable 3 mm left lower lobe pulmonary nodule (ax ial image 58). Stable 6 mm right middle lobe nodule. Images through the upper abdomen reveal no abnormalities. Impression: Stable extensive emphysema and chronic interstitial disease. Stable subcentimeter pulmonary nodules, as detailed above. Reviewed, dictated and finalized at [facility]. Impression: Stable extensive emphysema and chronic interstitial disease. Stable subcentimeter pulmonary nodules, as detailed above.
--- OUTSIDE RECORDS SUMMARY | 2025-01-30 08:07 | XMS_ITS | CONTINUITY OF CARE DOCUMENT ---
Author Name mary gracejindolores Address Unknown Organization [facility] Address [address] [place] [address] Phone [phone] Care Team Providers Care Lease Administration Analyst Name Role Phone Rainer EATON, Lizzy Unavailable [phone] JUAN EATON, VANESSA Unavailable [phone] COSME EATON, MAURA Unavailable [phone] INSURANCE PROVIDERS Payer name Policy type / Coverage type [place] red republican ID AETNA [facility] Other [id number]
--- NOTE | 2025-01-31 21:12 | WPDPFTINT ---
PFT Procedure Performed PFT Procedure Performed Spirometry with Pre/Post Bronchodilator Plethysmography (Lung Vol) Diffusing Cap (DLCO) PFT Interpretation DOS: 01/30/2025 REQUESTING: Gabriel Rg APRN REASON FOR TESTING: COPD and ILD PULMONARY FUNCTION TESTS Results are not reliable and reproducible. Repeatability of spirometry FEV1 maneuver pre and post bronchodilator is Grade B. The patient struggled with the amount of effort required during testing. GLI 2012 reference equations were used. Spirometry: The pre-bronchodilator FEV1 is 1.05 L, 42%, very severely reduced. The pre-bronchodilator FVC is 2.23 L, 70%, mildly reduced. The FEV1/FVC ratio is 47%, reduced. After bronchodilator, the FEV1 is 0.56 L, 22% predicted, -47%. After bronchodilator, the FVC is 1.68 L, 53% predicted, -24%. The FEV1/FVC ratio is 33%. Lung volumes: The total lung capacity is 5.62 L, 111%, normal. The residual volume is 3.39 L, 170%, increased. The RV/TLC is 60%, increased. FRC is 4.64 L, 162%, increased. Airway resistance is increased. Diffusion: DLCO is 4.8, 22%, severely reduced. The DLCO/VA is 1.91, 43%, moderately reduced. Flow volume loop: The flow volume loop is not reliably repeated, cannot be evaluated. She was able to create 2 inspiratory loops and 3 expiratory loops, not reproducible. The sawtooth pattern in the expiratory limb is present as it was in 2023. IMPRESSION: Extremely severe obstructive ventilatory impairment with paradoxical decrease in flows after bronchodilator administration, moderate air trapping and a severe diffusion impairment with moderate improvement when adjusted for alveolar volume. Compared to her prior PFT 01/25/2024, the FEV1 is better. Her current FEV1 is 1.05 L, 42%; in 2023 the FEV1 was 0.70 L, 28%. The FVC this year compared to 2023 are almost identical. There was an 8% increase in the FEV1 on the 2023 study compared to 47% drop in FEV1 on this 2024 study. Baseline values for FVC are similar between 2023 and 2024. Lung volumes and diffusion values are similar comparing the last 2 studies. The flow volume loops show the same saw tooth pattern in the expiratory limbs. This pattern is usually generated by air flow disturbances in the upper airway are from tremors of the respiratory muscles. This has been associated with sleep apnea, obesity, snorers without obstructive sleep apnea, upper airway injury, upper airway stenosis, tracheobronchomalacia, neuromuscular disorders with bulbar involvement, burn injury of the upper airway, diaphragmatic myoclonus, and herpes zoster of abdominal muscles. Clinical correlation is recommended. Geovanna Jacobson MD
--- NOTE | 2025-01-31 22:26 | WPDSIXMINUTE ---
Six Minute Walk Procedure Procedure Performed Pulmonary Stress Test (6 min walk) Six Minute Walk Six Minute Walk: DATE OF SERVICE: 01/30/2025 REQUESTING: Gabriel Rg APRN REASON FOR TESTING: COPD and ILD SIX MINUTE WALK This test was conducted per ATS guidelines. The initial saturation was 97%, and initial heart rate was 66 beats per minute. The patient walked without stopping, completing 243.8 m/800 ft. The saturation at the end of testing was 97%, and the heart rate was 67 beats per minute. The lowest saturation was 94%. The highest heart rate was 95 beats per minute. IMPRESSION: This is a normal study. The patient did not require supplemental oxygen with exertion. The patient walked the same distance with the same saturation and heart rate compared to January 25, 2024. Geovanna Jacobson MD
== END 2025-01-30 08:04 | disposition home or self-care (01) ==
LOC: ANHPFT 08:06
PROVIDERS: PCP Family Medicine; Visit Provider Nurse Practitioner Family
DX: R94.2 Abnormal results of pulmonary function studies (principal); J43.8 Other emphysema; J84.89 Other specified interstitial pulmonary diseases; J44.9 Chronic obstructive pulmonary disease, unspecified; R91.8 Other nonspecific abnormal finding of lung field; Z72.0 Tobacco use; R06.09 Other forms of dyspnea
CPT/HCPCS: 71250; 94060; 94618; 94726; 94729

== ENCOUNTER 2025-06-11 00:13 | Day surgery (SDC) | payer MEDICARE, MEDICAID, SELFPAY ==
[2025-05-28 14:42] VITALS: BMI 20.5
[2025-06-11 10:58] VITALS: BP 131/78; PULSE 80; RESP 18; TEMP 36.3; O2SAT 95; BMI 20.2
[2025-06-11] MEDS: LACTATED RINGERS 1,000 ML 150 ML IV CONT (11:02)
--- NOTE | 2025-06-11 11:37 | WPDANESEPPF ---
Anes - Initial Pre Proc Eval Procedure: Operation Date: 06/11/25 12:30 Proposed Procedures p Screening Colonoscopy - Sage Venegas MD Date/Time: 06/11/25 11:37 Surgeon: Sage Venegas MD Pre Op Diagnosis: screening/positive cologuard Patient Data Age: 60 Gender: F Height: 1.6 m Weight: 51.9 kg Last Vital Signs Temp 36.3 C L 06/11/25 10:58 Pulse 80 06/11/25 10:58 Resp 18 06/11/25 10:58 BP 131/78 06/11/25 10:58 Pulse Ox 95 06/11/25 10:58 O2 Del Method Room Air 06/11/25 10:58 Allergies Allergy/AdvReac Type Severity Reaction Status Date / Time aspirin Allergy Severe stomach Verified 06/11/25 10:56 pain ampicillin Allergy Intermediate Vomiting Verified 06/11/25 10:56 sumatriptan Allergy Intermediate Chest Pain Verified 06/11/25 10:56 trazodone Allergy Intermediate Dizziness Verified 06/11/25 10:56 duloxetine (From Cymbalta) AdvReac Intermediate Dizziness Verified 06/11/25 10:56 Home Medications ?Medication ?Instructions ?Recorded ?Confirmed ?Type bupropion HCl 150 mg 24 hr tablet, 150 mg PO DAILY 02/04/22 06/11/25 History extended release buspirone 10 mg tablet 10 mg PO DAILY 02/04/22 06/11/25 History inhalational spacing device #1 ea 07/26/22 04/29/25 Rx cholecalciferol (vitamin D3) 100 100 mcg PO DAILY #30 tabs 08/12/22 06/11/25 Rx mcg (4,000 unit) tablet albuterol sulfate 2.5 mg/3 mL 2.5 mg (3 mL) inhalation QID PRN 09/24/24 05/28/25 Rx (0.083 %) solution for nebulization SHORTNESS OF BREATH #360 mL Combivent Respimat 20 mcg-100 1 puff inhalation Q4H PRN 10/15/24 06/11/25 Rx mcg/actuation solution for shortness of breath or wheezing #4 inhalation (ipratropium-albuterol) grams mirabegron 25 mg tablet,extended See Rx Instructions .Route 01/21/25 06/11/25 Rx release 24 hr .COMPLEX #90 tabs atorvastatin 20 mg tablet See Rx Instructions .Route 02/04/25 06/11/25 Rx .COMPLEX #100 tabs sitagliptin phosphate 50 See Rx Instructions .Route 03/11/25 06/11/25 Rx mg-metformin 1,000 mg tablet .COMPLEX #180 tabs (Janumet) carisoprodol 350 mg tablet 350 mg PO TID #90 tabs 04/16/25 06/11/25 Rx upadacitinib 15 mg tablet,extended 15 mg PO DAILY 04/29/25 06/11/25 History release 24 hr (Rinvoq) acetaminophen 300 mg-codeine 30 mg 1 tablet PO BID PRN pain #60 tabs 05/19/25 05/28/25 Rx tablet Laboratory Tests 06/11/25 11:12 POC Capillary Glucose 109 H mg/dl (65-105) Patient hx anesthesia problems: none Family hx anesthesia problems: none Results Review: All pre-operative results and documents have been reviewed as part of the pre-operative evaluation. [facility] Past Medical History Medical History Counseling on health promotion and disease prevention Degenerative joint disease of cervical and lumbar spine Rheumatoid arthritis, seropositive, multiple sites Anxiety Diabetes type 2, controlled Rheumatoid arthritis Degenerative joint disease Carpal tunnel syndrome Skin cancer Mixed hyperlipidemia Fibromyalgia COPD (chronic obstructive pulmonary disease) Surgical History Surgical History H/O: hysterectomy Family History Family History Mother Patient's mother is in good health Family history of psoriasis Family history of chronic obstructive pulmonary disease Father Patient's father is in good health Family history of heart disease in male family member before age 55 Sibling Patient's brother is in good health Family history of type 2 diabetes mellitus Diabetes mellitus Other Family history of blood dyscrasia Social History Social History Smoking packs per day: 0.5 Smoking cigarettes per day: 10.0 Years smoked: 49 Smoking pack-years: 24.50 Smoking status: Current every day smoker Tobacco type: cigarettes Second hand tobacco smoke exposure: Yes Additional smoking assessment comments: started smoking at age 9 Alcohol intake: former Substance use: never Substance use type: does not use Lack of Transportation: No Lack of Food: Never True Current Housing: I Have Housing Concerned About Future Housing: No Difficulty Paying Gas/Electric Bills: No Difficulty Paying for Meds: No Currently Unemployed: No Education: Associate Degree Difficulty w/ Childcare or Family Care: No Living arrangements: with family Anes - Eval Final PreProcedure Day of Procedure 06/11/25 11:37 Patient weight: normal Heart: regular rate and rhythm Lungs: clear to auscultation and normal air movement Airway: Mallampati scale class II Neurological: alert and oriented Last oral intake: >/= 8 hours ASA classification: II Emergent: no Anesthetic plan: proceed Anesthesia type and monitoring: general GIVS and standard monitoring Results Review: All pre-operative results and documents have been reviewed as part of the pre-operative evaluation. Informed Consent: The patient's anesthetic plan and its attendant risks and benefits were discussed with the patient/family/POA. Questions were solicited and answers provided to the satisfaction of the patient/family/POA.
--- NOTE | 2025-06-11 12:39 | PM.HPGS ---
History of Present Illness History of Present Illness Consent: Risks, benefits, and alternatives have been discussed and questions answered. Patient agrees to proceed with procedure. Chief complaint: screening/positive cologuard Narrative: Sarai Martinez is a 60 year old female with + cologuard, had colonoscopy but years ago Review of Systems Review of Systems: All systems reviewed & are unremarkable except as noted in HPI and below PMFSH Past Medical History Medical History Counseling on health promotion and disease prevention Degenerative joint disease of cervical and lumbar spine Rheumatoid arthritis, seropositive, multiple sites Anxiety Diabetes type 2, controlled Rheumatoid arthritis Degenerative joint disease Carpal tunnel syndrome Skin cancer Mixed hyperlipidemia Fibromyalgia COPD (chronic obstructive pulmonary disease) Surgical History Surgical History H/O: hysterectomy Family History Family History Mother Patient's mother is in good health Family history of psoriasis Family history of chronic obstructive pulmonary disease Father Patient's father is in good health Family history of heart disease in male family member before age 55 Sibling Patient's brother is in good health Family history of type 2 diabetes mellitus Diabetes mellitus Other Family history of blood dyscrasia Social History Social History Smoking packs per day: 0.5 Smoking cigarettes per day: 10.0 Years smoked: 49 Smoking pack-years: 24.50 Smoking status: Current every day smoker Tobacco type: cigarettes Second hand tobacco smoke exposure: Yes Additional smoking assessment comments: started smoking at age 9 Alcohol intake: former Substance use: never Substance use type: does not use Lack of Transportation: No Lack of Food: Never True Current Housing: I Have Housing Concerned About Future Housing: No Difficulty Paying Gas/Electric Bills: No Difficulty Paying for Meds: No Currently Unemployed: No Education: Associate Degree Difficulty w/ Childcare or Family Care: No Living arrangements: with family Meds Home Medications and Allergies Home Medications ?Medication ?Instructions ?Recorded ?Confirmed ?Type bupropion HCl 150 mg 24 hr tablet, 150 mg PO DAILY 02/04/22 06/11/25 History extended release buspirone 10 mg tablet 10 mg PO DAILY 02/04/22 06/11/25 History inhalational spacing device #1 ea 07/26/22 04/29/25 Rx cholecalciferol (vitamin D3) 100 100 mcg PO DAILY #30 tabs 08/12/22 06/11/25 Rx mcg (4,000 unit) tablet albuterol sulfate 2.5 mg/3 mL 2.5 mg (3 mL) inhalation QID PRN 09/24/24 05/28/25 Rx (0.083 %) solution for nebulization SHORTNESS OF BREATH #360 mL Combivent Respimat 20 mcg-100 1 puff inhalation Q4H PRN 10/15/24 06/11/25 Rx mcg/actuation solution for shortness of breath or wheezing #4 inhalation (ipratropium-albuterol) grams mirabegron 25 mg tablet,extended See Rx Instructions .Route 01/21/25 06/11/25 Rx release 24 hr .COMPLEX #90 tabs atorvastatin 20 mg tablet See Rx Instructions .Route 02/04/25 06/11/25 Rx .COMPLEX #100 tabs sitagliptin phosphate 50 See Rx Instructions .Route 03/11/25 06/11/25 Rx mg-metformin 1,000 mg tablet .COMPLEX #180 tabs (Janumet) carisoprodol 350 mg tablet 350 mg PO TID #90 tabs 04/16/25 06/11/25 Rx upadacitinib 15 mg tablet,extended 15 mg PO DAILY 04/29/25 06/11/25 History release 24 hr (Rinvoq) acetaminophen 300 mg-codeine 30 mg 1 tablet PO BID PRN pain #60 tabs 05/19/25 05/28/25 Rx tablet Allergies Allergy/AdvReac Type Severity Reaction Status Date / Time aspirin Allergy Severe stomach Verified 06/11/25 10:56 pain ampicillin Allergy Intermediate Vomiting Verified 06/11/25 10:56 sumatriptan Allergy Intermediate Chest Pain Verified 06/11/25 10:56 trazodone Allergy Intermediate Dizziness Verified 06/11/25 10:56 duloxetine (From Cymbalta) AdvReac Intermediate Dizziness Verified 06/11/25 10:56 Vital Signs Vital Signs - 24 hr 06/11/25 10:58 Temperature 97.3 F L Pulse Rate 80 Respiratory Rate 18 Blood Pressure 131/78 Pulse Oximetry 95 Oxygen Delivery Room Air Exam Const: General: comfortable and no acute distress HENMT: Face/Nose/Sinus: Normal nares present Eyes: General: appearance normal, both eyes and all related structures Resp: Auscultation: clear to auscultation bilaterally Cardio: Rate: regular rate Rhythm: regular rhythm GI: Inspection: non-distended GI Palp: Yes Soft to palpation Skin: General skin exam: normal color Extrem: General: normal to inspection Psych: Mental Status: mental status grossly normal Assessment and Plan Assessment and plan (1) Positive colorectal cancer screening using Cologuard test: Code(s): R19.5 - Other fecal abnormalities Status: Acute Assessment and Plan: colonoscopy
--- NOTE | 2025-06-11 12:59 | S_PTH ---
PATIENT: Sarai Martinez LOC: [facility]#:[id number] AGE/SX: 60/F ROOM: RE06/11/[address]: Sage Venegas MD : 1965 BED: DIS: 06/11/2025 SPEC #: [id number] RECD: 06/11/25 13:49 STATUS: GARCIA RESophie #: [id number] ERIKA: 06/11/25 12:[address]: Sage Venegas DEPT: [facility] Surgical RECD BY: Chasity Downs ENTERED: 06/11/25 13:50 SP TYPE: Surgical OTHR DR: Ebenezer Rai MD Tissues: A - Colon Polypectomy B - Colon Polypectomy Procedures: Hematoxylin and Eosin Stain Gross and Microscopic Level 4
[2025-06-11 13:05] VITALS: BP 86/40; PULSE 66; RESP 18; O2SAT 100
[2025-06-11 13:15] VITALS: BP 94/44; PULSE 68; RESP 18; O2SAT 100
[2025-06-11 13:25] VITALS: BP 115/63; PULSE 64; RESP 18; O2SAT 100
== END 2025-06-11 13:29 | disposition home or self-care (01) ==
PROVIDERS: PCP Family Medicine; Referring Provider Family Medicine; Visit Provider Internal Medicine Gastroenterology
PROC: 0DJD8ZZ Inspection of Lower Intestinal Tract, Via Natural or Artificial Opening Endoscopic (ICD-10-PCS; CPT 45378; principal; 2025-06-11 12:30)
DX: R19.5 Other fecal abnormalities (principal); K63.5 Polyp of colon; K64.8 Other hemorrhoids; E78.2 Mixed hyperlipidemia; F41.9 Anxiety disorder, unspecified; E11.9 Type 2 diabetes mellitus without complications; M79.7 Fibromyalgia; J44.9 Chronic obstructive pulmonary disease, unspecified; M05.89 Other rheumatoid arthritis with rheumatoid factor of multiple sites; M51.369 Other intervertebral disc degeneration, lumbar region without mention of lumbar back pain or lower extremity pain; M50.30 Other cervical disc degeneration, unspecified cervical region; F17.210 Nicotine dependence, cigarettes, uncomplicated; Z79.51 Long term (current) use of inhaled steroids; Z79.84 Long term (current) use of oral hypoglycemic drugs; Z98.890 Other specified postprocedural states; Z85.828 Personal history of other malignant neoplasm of skin; Z82.49 Family history of ischemic heart disease and other diseases of the circulatory system
CPT/HCPCS: 45385; 82948; 88305; J2704; J7120

== ENCOUNTER 2025-06-27 12:49 | Emergency (ER) | payer MEDICARE, MEDICAID, SELFPAY ==
--- NOTE | ~2025-06-27 | XR_ITS ---
EXAMINATION: XR chest 2V, 06/27/2025 13:15 CDT HISTORY: sob/chest pain, hx of COPD, smoker COMPARISON: No comparisons available. Technique: 2 views obtained. Findings: Scattered bilateral interstitial airspace opacities superimposed on chronic lung disease. No pneumothorax. Heart is normal size. Mediastinal and hilar contours are within normal limits. Bony thorax no acute abnormality. Impression: Probable viral pneumonitis Reviewed, dictated and finalized at location P. Impression: Probable viral pneumonitis
[2025-06-27 12:56] VITALS: BP 125/100; PULSE 76; RESP 14; TEMP 36.5; O2SAT 97
--- NOTE | 2025-06-27 13:01 | ECG_ITS ---
Test Date: 2025-06-27 13:02:13 Measurements Intervals [place] Rate: 68 P: 57 ND: 122 QRS: 32 QRSD: 77 T: 64 QT: 389 QTc: 415 Interpretive Statements SINUS RHYTHM BORDERLINE ST-T WAVE ABNORMALITY- DIFFUSE LEADS BASELINE ARTIFACT- I, II, III, AVR, AVL, AVF, V2 BORDERLINE ECG No previous ECG available for comparison Electronically Signed On 06-27-2025 13:05:15 CDT by Eleazar Abernathy D.O.
[2025-06-27 13:03] VITALS: PULSE 67
[2025-06-27 13:04] VITALS: O2SAT 100
[2025-06-27 13:14] LABS: Hematocrit 43.3 % (37.0-47.0); Hemoglobin 14.0 g/dL (12.0-15.0); Immature Granulocyte Percent A 0.8 % (0-0.5); Lymphocytes Absolute Auto 3.43 K/mm3 (0.9-3.2); Mean Corpuscular HGB Conc 32.3 g/dl (32-36); Mean Corpuscular Hemoglobin 29.7 pg (26-34); Mean Corpuscular Volume 91.7 fl (80-100); Nucleated Red Blood Cells Absolute Auto 0.000 K/mm3 (0.0-0.012); Nucleated Red Blood Cells Perc 0.0 % (0.0-0.2); Platelet Count Result 306 k/mm3 (150-375); Red Blood Count 4.72 M/mm3 (4.2-5.4); White Blood Count 8.7 K/mm3 (4.5-10.0)
[2025-06-27 13:25] LABS: Alanine Aminotransferase 17 U/L (6-35); Albumin Level 4.6 g/dL (3.5-5.1); Alkaline Phosphatase 56 U/L (38-126); Anion Gap 8 mmol/L (4-12); Aspartate Amino Transferase 28 U/L (14-36); Bilirubin,Total 0.4 mg/dL (0.2-1.3); Blood Urea Nitrogen 14 mg/dL (7-17); Calcium 9.3 mg/dL (8.4-10.2); Carbon Dioxide 27 mmol/L (22-30); Chloride 103 mmol/L (98-107); Estimated CRCL calculation 48 ml/min; Estimated Glomerular Filt Rate > 60; Glucose 86 mg/dL (65-110); Lipase 257 U/L (23-300); Potassium 4.0 mmol/L (3.4-5.0); Sodium 138 mmol/L (137-145); Total Protein 7.6 g/dL (6.3-8.2)
[2025-06-27 13:32] LABS: INR 1.0; Prothrombin Time 13.4 Seconds (11.1-14.7)
[2025-06-27 13:33] VITALS: PULSE 60; RESP 20; O2SAT 99
[2025-06-27 13:34] LABS: Partial Thromboplastin Time 27.1 Seconds (22.3-36.8)
[2025-06-27 13:37] LABS: Troponin I < 0.012 ng/mL (0.000-0.034)
--- NOTE | 2025-06-27 14:11 | ED_ITS ---
HPI - SOB/Dyspnea General Chief Complaint: Shortness of Breath/Dyspnea Stated Complaint: hurts to breath Time Seen by Provider: 06/27/25 12:55 Source: patient Mode of arrival: ambulatory Limitations: no limitations History of Present Illness HPI Narrative: 60-year-old with history of COPD presents to the ER with a complains of left- sided chest pain upon coughing for past 2 days. Patient states that every time she takes a deep breath has pain in the left side. Cough is nonproductive in. No history of fever or chills. Denies any shortness of breath. MD elicited complaint: cough and pain with inspiration Pertinent past history: COPD Onset (ago): day(s) (2) Severity: mild Exacerbating factors: inspiration Relieving factors: nothing Known history of: COPD Associated symptoms: denies other symptoms Related Data Home Medications ?Medication ?Instructions ?Recorded ?Confirmed ?Last Taken ?Type bupropion HCl 150 mg 24 hr tablet, 150 mg PO DAILY 10/2706/11/25 06/10/25 History extended release buspirone 10 mg tablet 10 mg PO DAILY 02/04/2203/2906/10/25 History upadacitinib 15 mg tablet,extended 15 mg PO DAILY 04/0606/11/25 06/10/25 History release 24 hr (Rinvoq) Allergies Allergy/AdvReac Type Severity Reaction Status Date / Time aspirin Allergy Severe stomach Verified 06/27/25 13:08 pain ampicillin Allergy Intermediate Vomiting Verified 06/27/25 13:08 sumatriptan Allergy Intermediate Chest Pain Verified 06/27/25 13:08 trazodone Allergy Intermediate Dizziness Verified 06/27/25 13:08 pregabalin (From Lyrica) AdvReac Severe Confusion Verified 06/27/25 13:08 duloxetine (From Cymbalta) AdvReac Intermediate Dizziness Verified 06/27/25 13:08 glimepiride AdvReac Intermediate Dizziness Verified 06/27/25 13:08 empagliflozin (From AdvReac Unknown Other Verified 06/27/25 13:08 Jardiance) hydroxychloroquine AdvReac Nausea Verified 06/27/25 13:08 Review of Systems 2 Review of Systems: All systems reviewed & are unremarkable except as noted in HPI and below Constitutional: Constitutional: Reports no additional constitutional complaints Eyes: Eyes: Reports no additional eye complaints ENT: Reports system reviewed and no additional complaints, except as documented Cardiovascular: Cardiovascular: Reports no additional cardiovascular complaints Respiratory: Respiratory: Reports as per HPI Gastrointestinal: Gastrointestinal: Reports no additional gastrointestinal complaints Musculoskeletal: Musculoskeletal: Reports no additional musculoskeletal complaints Integumentary/Breasts: Skin/Breast: Reports system reviewed and no additional complaints, except as docu Neurologic: Reports system reviewed and no additional complaints, except as documented PMFSH Past Medical History Medical History Counseling on health promotion and disease prevention Degenerative joint disease of cervical and lumbar spine Rheumatoid arthritis, seropositive, multiple sites Anxiety Diabetes type 2, controlled Rheumatoid arthritis Degenerative joint disease Carpal tunnel syndrome Skin cancer Mixed hyperlipidemia Fibromyalgia COPD (chronic obstructive pulmonary disease) Surgical History Surgical History H/O: hysterectomy Family History Family History Mother Patient's mother is in good health Family history of psoriasis Family history of chronic obstructive pulmonary disease Father Patient's father is in good health Family history of heart disease in male family member before age 55 Sibling Patient's brother is in good health Family history of type 2 diabetes mellitus Diabetes mellitus Other Family history of blood dyscrasia Social History Social History Smoking packs per day: 0.5 Smoking cigarettes per day: 10.0 Years smoked: 49 Smoking pack-years: 24.50 Smoking status: Current every day smoker Tobacco type: cigarettes Second hand tobacco smoke exposure: Yes Additional smoking assessment comments: started smoking at age 9 Alcohol intake: former Substance use: never Substance use type: does not use Lack of Transportation: No Lack of Food: Never True Current Housing: I Have Housing Concerned About Future Housing: No Difficulty Paying Gas/Electric Bills: No Difficulty Paying for Meds: No Currently Unemployed: No Education: Associate Degree Difficulty w/ Childcare or Family Care: No Living arrangements: with family Spiritual care concerns: No Exam 2 Narrative: GENERAL: Well-appearing, well-nourished, and in no acute distress. HEAD: Normocephalic, atraumatic. EYES: PERRLA and EOMI. ENT: Nares clear, no rhinorrhea or epistaxis. Mucous membranes moist. NECK: Supple. CHEST: Clear to auscultation. No respiratory distress. HEART: Regular rate and rhythm. No murmur heard. Normal peripheral pulses. ABDOMEN: Soft, nontender, nondistended, normal active bowel sounds. EXTREMITIES: Normal range of motion. No edema. SKIN: Warm, dry, no rash. NEURO: No focal deficits. Alert and oriented x3. PSYCH: Normal mood and affect. Course Course Emergency Course: Informed patient about her lab work, chest x-ray findings. Advised her to take medication as prescribed, continue home medication. Vital Signs Vital signs: Vital Signs Temperature 36.5 C 06/27/25 12:56 Pulse Rate 76 06/27/25 12:56 Respiratory Rate 14 06/27/25 12:56 Blood Pressure 125/100 H 06/27/25 12:56 Pulse Oximetry 97 06/27/25 12:56 Oxygen Delivery Room Air 06/27/25 12:56 Temperature 36.5 C 06/27/25 12:56 Pulse Rate 65 06/27/25 14:18 Respiratory Rate 17 06/27/25 14:18 Blood Pressure 134/70 06/27/25 14:18 Pulse Oximetry 98 06/27/25 14:18 Oxygen Delivery Room Air 06/27/25 13:04 MDM - SOB/Dyspnea MDM Narrative Medical decision making narrative: 50-year-old with history of COPD now having left-sided chest pain will do cardiac workup along with the chest x-ray to rule pneumonia appears to be more pleuritic this time. Differential Diagnosis Differential diagnosis: Likely acute exacerbation of chronic obstructive airways disease and community acquired pneumonia Medical Records Attestation: I reviewed the patient's medical records. Lab Data Attestation: I reviewed the patient's lab results. 06/27/25 13:09 06/27/25 13:09 Labs: Lab Results 06/27/25 Range/Units 13:09 WBC 8.7 (4.5-10.0) K/mm3 RBC 4.72 (4.2-5.4) M/mm3 Hgb 14.0 (12.0-15.0) g/dL Hct 43.3 (37.0-47.0) % MCV 91.7 (80-100) fl MCH 29.7 (26-34) pg MCHC 32.3 (32-36) g/dl RDW 14.6 H (11.5-14.5) % Plt Count 306 (150-375) k/mm3 MPV 9.8 (7.4-10.4) fl Immature Gran % (Auto) 0.8 H (0-0.5) % Neut % (Auto) 50.4 (45.5-73.1) % Lymph % (Auto) 39.6 (18.3-44.2) % [place] % (Auto) 7.0 (2.6-8.5) % Eos % (Auto) 1.5 (0-4.4) % Baso % (Auto) 0.7 (0.2-1.2) % Lymph # (Auto) 3.43 H (0.9-3.2) K/mm3 [place] # (Auto) 0.6 (0.1-0.6) K/mm3 Eos # (Auto) 0.1 (0-0.3) K/mm3 Baso # (Auto) 0.1 (0.0-0.1) K/mm3 Abs Immat Gran (auto) 0.07 H (0.00-0.031) K/mm3 Absolute Neuts (auto) 4.4 (1.3-6.7) K/mm3 Absolute Nucleated RBC 0.000 (0.0-0.012) K/mm3 Nucleated RBC % 0.0 (0.0-0.2) % PT 13.4 (11.1-14.7) Seconds INR 1.0 APTT 27.1 (22.3-36.8) Seconds Sodium 138 (137-145) mmol/L Potassium 4.0 (3.4-5.0) mmol/L Chloride 103 (98-107) mmol/L Carbon Dioxide 27 (22-30) mmol/L Anion Gap 8 (4-12) mmol/L BUN 14 (7-17) mg/dL Creatinine 0.89 (0.7-1.0) mg/dL Estim Creat Clear Calc 48 ml/min Estimated GFR > 60 (59 - ) Glucose 86 (65-110) mg/dL Calcium 9.3 (8.4-10.2) mg/dL Total Bilirubin 0.4 (0.2-1.3) mg/dL AST 28 (14-36) U/L ALT 17 (6-35) U/L Alkaline Phosphatase 56 (38-126) U/L Troponin I < 0.012 (0.000-0.034) ng/mL Total Protein 7.6 (6.3-8.2) g/dL Albumin 4.6 (3.5-5.1) g/dL Lipase 257 (23-300) U/L Imaging Data Radiologist's impression: ITS Impressions Chest X-Ray 06/27/25 13:26 Impression: Probable viral pneumonitis ECG Data EKG #1: ECG completion date: 06/27/25 ECG completion time: 13:02 EKG Interpretation: normal rate (68), no ectopy, no ST changes, normal QRS and normal QT Discharge Plan Discharge Clinical Impression: Chest pain, pleuritic COPD (chronic obstructive pulmonary disease) Qualifiers: COPD type: unspecified COPD Qualified Code(s): J44.9 - Chronic obstructive pulmonary disease, unspecified Patient Disposition: Home Condition: Stable Instructions: Antibiotic Form, Pleurisy (DC) Additional Instructions: continue home medications , take meds as prescribed. Patient Language: Uzbek Prescriptions: New prednisone 20 mg tablet 20 mg PO BID Qty: 14 0RF doxycycline hyclate 100 mg capsule 100 mg PO BID Qty: 14 0RF naproxen [Naprosyn] 500 mg tablet 500 mg PO BID Qty: 14 0RF Rx Instructions: eat and take medication No Action (DME) inhalational spacing device Spacer See Rx Instructions .ROUTE .MEDSUPPLY Qty: 1 1RF Rx Instructions: As directed albuterol sulfate 2.5 mg /3 mL (0.083 %) solution for nebulization 2.5 mg INHALATION QID PRN (Reason: SHORTNESS OF BREATH) Qty: 360 5RF Rinvoq 15 mg tablet extended release 24 hr 15 mg PO DAILY buspirone 10 mg tablet 10 mg PO DAILY bupropion HCl 150 mg tablet extended release 24 hr 150 mg PO DAILY cholecalciferol (vitamin D3) 100 mcg (4,000 unit) tablet 100 mcg PO DAILY Qty: 30 0RF Patient Comments: LAST DOSE 05/06/23 Combivent Respimat 20-100 mcg/actuation mist 1 puff inhalation Q4H PRN (Reason: shortness of breath or wheezing) Qty: 4 11RF Rx Instructions: Max 6 inhalations/day spaced apart every 4 hours. mirabegron 25 mg tablet extended release 24 hr See Rx Instructions .ROUTE .COMPLEX Qty: 90 1RF Dose Instruction: Take 1 tablet by mouth once daily Rx Instructions: Take 1 tablet by mouth once daily atorvastatin 20 mg tablet See Rx Instructions .ROUTE .COMPLEX Qty: 100 1RF Dose Instruction: Take 1 tablet by mouth once daily Rx Instructions: Take 1 tablet by mouth once daily Janumet 50-1,000 mg tablet See Rx Instructions .ROUTE .COMPLEX Qty: 180 1RF Dose Instruction: Take 1 tablet by mouth twice daily Rx Instructions: Take 1 tablet by mouth twice daily acetaminophen-codeine 300-30 mg tablet 1 tablet PO BID PRN (Reason: pain) Qty: 60 0RF carisoprodol 350 mg tablet 350 mg PO TID Qty: 90 1RF Follow-up/Referrals: Ebenezer Rai MD [Primary Care Provider, Family Practice] Time of Disposition: 14:43
[2025-06-27 14:18] VITALS: BP 134/70; PULSE 65; RESP 17; O2SAT 98
== END 2025-06-27 14:44 | disposition home or self-care (01) ==
PROVIDERS: Emergency Provider Family Medicine; PCP Family Medicine
DX: R07.81 Pleurodynia (principal); J44.9 Chronic obstructive pulmonary disease, unspecified; E11.9 Type 2 diabetes mellitus without complications; M06.9 Rheumatoid arthritis, unspecified; E78.2 Mixed hyperlipidemia; F17.210 Nicotine dependence, cigarettes, uncomplicated
CPT/HCPCS: 36415; 71046; 80053; 83690; 84484; 85025; 85610; 85730; 93005; 99284

== ENCOUNTER 2025-07-11 09:15 | Outpatient (CLI) | payer MEDICARE, MEDICAID, SELFPAY ==
--- NOTE | ~2025-07-11 | MM_ITS ---
EXAMINATION: MM screening yinka BI w alma HISTORY: Screening TECHNIQUE: Craniocaudal and mediolateral oblique 3-D tomosynthesis images were obtained and synthetic 2-D images were generated. CAD analysis was submitted and interpreted. COMPARISON: Comparison to multiple prior studies sequentially, with oldest reviewed study dated , 01/17/2019 BREAST PARENCHYMAL COMPOSITION: There are scattered areas of fibroglandular density. FINDINGS: There is no evidence of suspicious mass, calcification, or architectural distortion to suggest malignancy in either breast. IMPRESSION: 1. No mammographic evidence of malignancy. 2. Recommend routine screening mammography in one year. BI-RADS Category 1: Negative Reviewed, dictated and finalized at location B. [employer]
== END 2025-07-11 09:16 | disposition home or self-care (01) ==
LOC: ANHFOHIMG 09:17
PROVIDERS: PCP Family Medicine; Visit Provider Family Medicine
DX: Z12.31 Encounter for screening mammogram for malignant neoplasm of breast (principal)
CPT/HCPCS: 77063; 77067

== ENCOUNTER 2025-07-25 08:11 | Emergency (ER) | payer MEDICARE, MEDICAID, SELFPAY ==
--- NOTE | ~2025-07-25 | CT_ITS ---
EXAMINATION: CT soft tissue neck w con COMPARISON: None HISTORY: L sided facial/jaw swelling TECHNIQUE: Axial images were obtained with IV contrast. Sagittal, coronal reconstruction images were obtained from the axial views. Omnipaque 370, [address] scan performed using dose optimization techniques including the following automated exposure control; adjustment of mA and/or kV; use of iterative reconstruction technique. Automatic exposure control was used to reduce radiation dose. Permanent radiation dose record is archived to PACS. FINDINGS: Visualized brain parenchyma appears unremarkable. Optic globes are unremarkable There is no thickening of the prevertebral space or asymmetry of the base of the tongue. There is no asymmetry of the aryepiglottic folds or the visualized vocal cords No thyroid nodules identified. No lymphadenopathy anterior superior mediastinum. No thickening of the esophagus Parapharyngeal spaces are intact. There is no asymmetry of the tonsillar tissue Within the parotid glands bilaterally there are probable intraparotid lymph nodes noted the largest left side 9 x 9 mm. The right submandibular gland is unremarkable. The left submandibular gland appears inflamed and slightly enlarged with surrounding inflammatory changes and prominent paranasal subman dibular lymph nodes, there is no rim-enhancing abscess identified with no gross calculus appreciated The lung apices demonstrate moderate to severe emphysematous changes. No sclerotic or lytic lesions are identified. IMPRESSION: 1. Inflammatory changes of the left submandibular gland, no abscess. Follow-up recommended to assess resolution. 2. Bilateral probable intraparotid lymph nodes. Distinction from parotid neoplasm is limited. Follow-up recommended to assess stability. Clinically if there is concern for neoplasm MRI is recommended Reviewed, dictated and finalized at location [facility] [employer] IMPRESSION: 1. Inflammatory changes of the left submandibular gland, no abscess. Follow-up recommended to assess resolution. 2. Bilateral probable intraparotid lymph nodes. Distinction from parotid neopla sm is limited. Follow-up recommended to assess stability. Clinically if there i s concern for neoplasm MRI is recommended
[2025-07-25 08:19] VITALS: BP 142/83; PULSE 76; RESP 15; TEMP 36.6; O2SAT 97
[2025-07-25 08:24] VITALS: PULSE 80
[2025-07-25 09:13] VITALS: BP 136/77; PULSE 79; RESP 15; O2SAT 93
[2025-07-25] MEDS: MORPHINE SULFATE (*CRX) 4 MG/ML INJ 2 MG IV PUSH (09:42)
[2025-07-25] MEDS: ONDANSETRON INJ 4 MG/2 ML VIAL IV PUSH (09:44)
[2025-07-25 09:47] LABS: Hematocrit 38.1 % (37.0-47.0); Hemoglobin 12.3 g/dL (12.0-15.0); Immature Granulocyte Percent A 0.7 % (0-0.5); Lymphocytes Absolute Auto 2.29 K/mm3 (0.9-3.2); Mean Corpuscular HGB Conc 32.3 g/dl (32-36); Mean Corpuscular Hemoglobin 29.6 pg (26-34); Mean Corpuscular Volume 91.8 fl (80-100); Nucleated Red Blood Cells Absolute Auto 0.000 K/mm3 (0.0-0.012); Nucleated Red Blood Cells Perc 0.0 % (0.0-0.2); Platelet Count Result 249 k/mm3 (150-375); Red Blood Count 4.15 M/mm3 (4.2-5.4); White Blood Count 11.0 K/mm3 (4.5-10.0)
--- NOTE | 2025-07-25 09:54 | ED_ITS ---
HPI - General Adult General Chief complaint: Unspecified Stated complaint: swelling to left side of face Time Seen by Provider: 07/25/25 09:02 Source: patient Mode of arrival: ambulatory Limitations: no limitations History of Present Illness HPI narrative: Patient is a 60y/o female who presents to the ED with c/o left-sided facial/jaw swelling/pain. Patient reports having pain/swelling throughout her left-sided face and jaw for the past 2 days. States it has been worsening. Worse with opening her mouth. Has been taking Tylenol and ibuprofen without improvement. Has not taken anything for pain today. Denies dental issues, dental pain, ear pain, fevers, N/V. Related Data Home Medications ?Medication ?Instructions ?Recorded ?Confirmed ?Last Taken ?Type bupropion HCl 150 mg 24 hr tablet, 150 mg PO DAILY 10/2706/11/25 06/10/25 History extended release buspirone 10 mg tablet 10 mg PO DAILY 02/04/2203/2906/10/25 History upadacitinib 15 mg tablet,extended 15 mg PO DAILY 04/0606/11/25 06/10/25 History release 24 hr (Rinvoq) Allergies Allergy/AdvReac Type Severity Reaction Status Date / Time aspirin Allergy Severe stomach Verified 07/25/25 08:34 pain ampicillin Allergy Intermediate Vomiting Verified 07/25/25 08:34 sumatriptan Allergy Intermediate Chest Pain Verified 07/25/25 08:34 trazodone Allergy Intermediate Dizziness Verified 07/25/25 08:34 pregabalin (From Lyrica) AdvReac Severe Confusion Verified 07/25/25 08:34 duloxetine (From Cymbalta) AdvReac Intermediate Dizziness Verified 07/25/25 08:34 glimepiride AdvReac Intermediate Dizziness Verified 07/25/25 08:34 empagliflozin (From AdvReac Unknown Other Verified 07/25/25 08:34 Jardiance) hydroxychloroquine AdvReac Nausea Verified 07/25/25 08:34 Review of Systems 2 Review of Systems: All systems reviewed & are unremarkable except as noted in HPI. All systems reviewed & are unremarkable except as noted in HPI and below PMFSH Past Medical History Medical History Counseling on health promotion and disease prevention Degenerative joint disease of cervical and lumbar spine Rheumatoid arthritis, seropositive, multiple sites Anxiety Diabetes type 2, controlled Rheumatoid arthritis Degenerative joint disease Carpal tunnel syndrome Skin cancer Mixed hyperlipidemia Fibromyalgia COPD (chronic obstructive pulmonary disease) Surgical History Surgical History H/O: hysterectomy Family History Family History Mother Patient's mother is in good health Family history of psoriasis Family history of chronic obstructive pulmonary disease Father Patient's father is in good health Family history of heart disease in male family member before age 55 Sibling Patient's brother is in good health Family history of type 2 diabetes mellitus Diabetes mellitus Other Family history of blood dyscrasia Social History Social History Smoking packs per day: 0.5 Smoking cigarettes per day: 10.0 Years smoked: 49 Smoking pack-years: 24.50 Smoking status: Current every day smoker Tobacco type: cigarettes Second hand tobacco smoke exposure: Yes Additional smoking assessment comments: started smoking at age 9 Alcohol intake: former Substance use: never Substance use type: does not use Lack of Transportation: No Lack of Food: Never True Current Housing: I Have Housing Concerned About Future Housing: No Difficulty Paying Gas/Electric Bills: No Difficulty Paying for Meds: No Currently Unemployed: No Education: Associate Degree Difficulty w/ Childcare or Family Care: No Living arrangements: with family Spiritual care concerns: No Exam 2 Narrative: GENERAL: Well appearing, well-nourished, non-toxic, in no acute distress. HEAD: Normocephalic, atraumatic. ENT: Moderate swelling/ focal TTP to L inferior facial cheek, L lateral jaw line, submandibular region. No significant tenderness along inner upper/lower gumline. No focal abscess. Mild discomfort with opening mouth fully. No jasbir trismus. No stridor or resp distress. Maintaining secretions. TM clear on L RESPIRATORY: Airway patent, respirations nonlabored. CARDIOVASCULAR: Regular rate and rhythm MUSCULOSKELETAL: Moves all extremities. No gross deformities. SKIN: Warm, dry, normal color. NEURO: A&O X3. Speech clear. PSYCHIATRIC: Appropriate mood and affect. Normal interaction. Course Vital Signs Vital signs: Vital Signs Temperature 97.9 F 07/25/25 08:19 Pulse Rate 76 07/25/25 08:19 Respiratory Rate 15 07/25/25 08:19 Blood Pressure 142/83 H 07/25/25 08:19 Pulse Oximetry 97 07/25/25 08:19 Oxygen Delivery Room Air 07/25/25 08:19 Temperature 97.9 F 07/25/25 08:19 Pulse Rate 69 07/25/25 11:21 Respiratory Rate 15 07/25/25 11:21 Blood Pressure 128/73 07/25/25 11:21 Pulse Oximetry 100 07/25/25 11:21 Oxygen Delivery Room Air 07/25/25 08:19 Medical Decision Making MDM Narrative Medical decision making narrative: Patient presented to ED with left-sided facial/jaw pain/swelling for the past few days. Vital signs stable upon arrival. Patient in no acute jasbir distress. No respiratory distress or compromise. No stridor. Exam concerning for possible parotiditis/sialoadenitis. CBC with white blood cell count of 11.0. Remainder basic laboratory studies are otherwise grossly unremarkable. Lactic acid within normal range. CT scan of soft tissue neck was obtained: IMPRESSION: 1. Inflammatory changes of the left submandibular gland, no abscess. Follow-up recommended to assess resolution. 2. Bilateral probable intraparotid lymph nodes. Distinction from parotid neoplasm is limited. Follow-up recommended to assess stability. Clinically if there is concern for neoplasm MRI is recommended Consistent with sialadenitis. Discussed lab and imaging findings with patient. Discussed management of sialadenitis with antibiotics as well as additional supportive measures. Given 1st dose of antibiotics in the ED. Will be referred to ENT for further evaluation. Advised to call office make appointment regarding abnormal lymph nodes. Given strict return precautions. Patient is in agreement with plan and feels comfortable going home. Discharged in stable condition. Medical Records Medical records reviewed: Yes I reviewed the external patient's medical records. Vital Signs Vital Signs: Vital Signs Temperature 97.9 F 07/25/25 08:19 Pulse Rate 76 07/25/25 08:19 Respiratory Rate 15 07/25/25 08:19 Blood Pressure 142/83 H 07/25/25 08:19 Pulse Oximetry 97 07/25/25 08:19 Oxygen Delivery Room Air 07/25/25 08:19 Temperature 97.9 F 07/25/25 08:19 Pulse Rate 69 07/25/25 11:21 Respiratory Rate 15 07/25/25 11:21 Blood Pressure 128/73 07/25/25 11:21 Pulse Oximetry 100 07/25/25 11:21 Oxygen Delivery Room Air 07/25/25 08:19 Lab Data Lab results reviewed: Yes I reviewed the patient's lab results. 07/25/25 09:38 07/25/25 09:38 Labs: Lab Results 07/25/25 Range/Units 09:38 WBC 11.0 H (4.5-10.0) K/mm3 RBC 4.15 L (4.2-5.4) M/mm3 Hgb 12.3 (12.0-15.0) g/dL Hct 38.1 (37.0-47.0) % MCV 91.8 (80-100) fl MCH 29.6 (26-34) pg MCHC 32.3 (32-36) g/dl RDW 15.0 H (11.5-14.5) % Plt Count 249 (150-375) k/mm3 MPV 9.5 (7.4-10.4) fl Immature Gran % (Auto) 0.7 H (0-0.5) % Neut % (Auto) 68.7 (45.5-73.1) % Lymph % (Auto) 20.7 (18.3-44.2) % [place] % (Auto) 8.1 (2.6-8.5) % Eos % (Auto) 1.4 (0-4.4) % Baso % (Auto) 0.4 (0.2-1.2) % Lymph # (Auto) 2.29 (0.9-3.2) K/mm3 [place] # (Auto) 0.9 H (0.1-0.6) K/mm3 Eos # (Auto) 0.2 (0-0.3) K/mm3 Baso # (Auto) 0.0 (0.0-0.1) K/mm3 Abs Immat Gran (auto) 0.08 H (0.00-0.031) K/mm3 Absolute Neuts (auto) 7.6 H (1.3-6.7) K/mm3 Absolute Nucleated RBC 0.000 (0.0-0.012) K/mm3 Nucleated RBC % 0.0 (0.0-0.2) % Sodium 138 (137-145) mmol/L Potassium 4.2 (3.4-5.0) mmol/L Chloride 105 (98-107) mmol/L Carbon Dioxide 28 (22-30) mmol/L Anion Gap 5 (4-12) mmol/L BUN 14 (7-17) mg/dL Creatinine 0.81 (0.7-1.0) mg/dL Estim Creat Clear Calc 53 ml/min Estimated GFR > 60 (59 - ) Glucose 83 (65-110) mg/dL Lactic Acid 1.3 (0.7-2.0) mmol/L Calcium 8.8 (8.4-10.2) mg/dL Total Bilirubin 0.4 (0.2-1.3) mg/dL AST 21 (14-36) U/L ALT 13 (6-35) U/L Alkaline Phosphatase 53 (38-126) U/L Total Protein 6.6 (6.3-8.2) g/dL Albumin 3.9 (3.5-5.1) g/dL Imaging Data Attestation: I personally reviewed and interpreted this imaging study as follows: Radiologist's impression: ITS Impressions Soft Tissue Neck CT 07/25/25 10:20 IMPRESSION: 1. Inflammatory changes of the left submandibular gland, no abscess. Follow-up recommended to assess resolution. 2. Bilateral probable intraparotid lymph nodes. Distinction from parotid neoplasm is limited. Follow-up recommended to assess stability. Clinically if there is concern for neoplasm MRI is recommended Discharge Plan Discharge Clinical Impression: Submandibular gland swelling, Sialoadenitis Patient Disposition: Home Condition: Stable Instructions: Antibiotic Form, Sialoadenitis (ED) Additional Instructions: Take antibiotics as prescribed. Stay very well hydrated. Recommend plenty of fluids. Use frequent warm compresses to left-sided face/jaw. Recommend gentle manipulation/massage of left-sided jaw. Recommend frequent salivary stimulation with sour candies (lemon drops). Recommend Tylenol/ibuprofen as needed for pain. [place] as needed for more severe pain. Follow-up with ENT for further evaluation. Call office today to make appointment within the next 1 week. Return to the ED if you experience worsening or severe symptoms, unable to keep down food or drink, difficulty breathing or swallowing, persistent fevers, or any other symptoms of concern. Patient Language: Qatari Prescriptions: New amoxicillin-pot clavulanate 875-125 mg tablet 1 tablet PO Q12H 10 Days Qty: 20 0RF No Action (DME) inhalational spacing device Spacer See Rx Instructions .ROUTE .MEDSUPPLY Qty: 1 1RF Rx Instructions: As directed albuterol sulfate 2.5 mg /3 mL (0.083 %) solution for nebulization 2.5 mg INHALATION QID PRN (Reason: SHORTNESS OF BREATH) Qty: 360 5RF Rinvoq 15 mg tablet extended release 24 hr 15 mg PO DAILY buspirone 10 mg tablet 10 mg PO DAILY bupropion HCl 150 mg tablet extended release 24 hr 150 mg PO DAILY cholecalciferol (vitamin D3) 100 mcg (4,000 unit) tablet 100 mcg PO DAILY Qty: 30 0RF Patient Comments: LAST DOSE 05/06/23 prednisone 20 mg tablet 20 mg PO BID Qty: 14 0RF doxycycline hyclate 100 mg capsule 100 mg PO BID Qty: 14 0RF naproxen [Naprosyn] 500 mg tablet 500 mg PO BID Qty: 14 0RF Rx Instructions: eat and take medication Combivent Respimat 20-100 mcg/actuation mist 1 puff inhalation Q4H PRN (Reason: shortness of breath or wheezing) Qty: 4 11RF Rx Instructions: Max 6 inhalations/day spaced apart every 4 hours. mirabegron 25 mg tablet extended release 24 hr See Rx Instructions .ROUTE .COMPLEX Qty: 90 1RF Dose Instruction: Take 1 tablet by mouth once daily Rx Instructions: Take 1 tablet by mouth once daily atorvastatin 20 mg tablet See Rx Instructions .ROUTE .COMPLEX Qty: 100 1RF Dose Instruction: Take 1 tablet by mouth once daily Rx Instructions: Take 1 tablet by mouth once daily Janumet 50-1,000 mg tablet See Rx Instructions .ROUTE .COMPLEX Qty: 180 1RF Dose Instruction: Take 1 tablet by mouth twice daily Rx Instructions: Take 1 tablet by mouth twice daily carisoprodol 350 mg tablet 350 mg PO TID Qty: 90 1RF acetaminophen-codeine 300-30 mg tablet 1 tablet PO BID PRN (Reason: pain) Qty: 60 0RF Follow-up/Referrals: Paco Tam MD [Physician, Ear, Nose, Throat] Referral Note: ENT Ebenezer Rai MD [Primary Care Provider, [facility]] Time of Disposition: 11:15
[2025-07-25 09:58] LABS: Alanine Aminotransferase 13 U/L (6-35); Albumin Level 3.9 g/dL (3.5-5.1); Alkaline Phosphatase 53 U/L (38-126); Anion Gap 5 mmol/L (4-12); Aspartate Amino Transferase 21 U/L (14-36); Bilirubin,Total 0.4 mg/dL (0.2-1.3); Blood Urea Nitrogen 14 mg/dL (7-17); Calcium 8.8 mg/dL (8.4-10.2); Carbon Dioxide 28 mmol/L (22-30); Chloride 105 mmol/L (98-107); Estimated CRCL calculation 53 ml/min; Estimated Glomerular Filt Rate > 60; Glucose 83 mg/dL (65-110); Potassium 4.2 mmol/L (3.4-5.0); Sodium 138 mmol/L (137-145); Total Protein 6.6 g/dL (6.3-8.2)
[2025-07-25 10:50] VITALS: BP 118/75; PULSE 78; RESP 13; O2SAT 96
[2025-07-25 11:21] VITALS: BP 128/73; PULSE 69; RESP 15; O2SAT 100
== END 2025-07-25 11:22 | disposition home or self-care (01) ==
PROVIDERS: Emergency Provider Physician Assistant; PCP Family Medicine
DX: K11.20 Sialoadenitis, unspecified (principal); E11.9 Type 2 diabetes mellitus without complications; M05.9 Rheumatoid arthritis with rheumatoid factor, unspecified; E78.2 Mixed hyperlipidemia; J44.9 Chronic obstructive pulmonary disease, unspecified; F41.9 Anxiety disorder, unspecified; F17.210 Nicotine dependence, cigarettes, uncomplicated
CPT/HCPCS: 36415; 70491; 80053; 83605; 85025; 96374; 96375; 99284; A9270; J2270; J2405; Q9967